=== PATIENT | male | born 1945 | race Caucasian/White ===

== ENCOUNTER 2021-07-03 12:07 | Outpatient (REF) | payer BC, SELFPAY ==
[2021-07-03 14:14] LABS: Alanine Aminotransferase 31 U/L (0-40); Anion Gap 11 (12-20); Aspartate Amino Transferase 24 U/L (5-37); Blood Urea Nitrogen 20 mg/dL (9-16); Calcium 9.7 mg/dL (8.4-10.2); Carbon Dioxide 32 mmol/L (22-29); Chloride 101 mmol/L (96-108); Cholesterol 179 mg/dL; Estimated Glomerular Filt Rate > 60; Glucose Fasting 82 mg/dL (60-99); HDL Cholesterol 57 mg/dL; LDL Cholesterol Calculated 106 mg/dl; Potassium 4.3 mmol/L (3.3-5.1); Sodium 140 mmol/L (135-145); Triglycerides 81 mg/dL
[2021-07-03 14:36] LABS: PSA,Total (Free>4and<10) 2.62 ng/mL (0.00-4.00); Vitamin D 25-OH Total 20.4 ng/mL (>30)
[2021-07-04 09:26] LABS: Lyme Blot 2.55 index
[2021-07-05 10:40] LABS: Lyme Abs Screen POSITIVE
[2021-07-12 13:27] LABS: 18 KD (IgG) Band REACTIVE; 23 KD (IgG) Band REACTIVE; 23 KD (IgM) Band NON-REACTIVE; 28 KD (IgG) Band NON-REACTIVE; 30 KD (IgG) Band NON-REACTIVE; 39 KD (IgM) Band NON-REACTIVE; 41 KD (IgM) Band NON-REACTIVE; 45 KD (IgG) Band NON-REACTIVE; 58 KD (IgG) Band NON-REACTIVE; 66 KD (IgG) Band NON-REACTIVE; 93 KD (IgG) Band NON-REACTIVE; Lyme IgG Blot Interp NEGATIVE (NEGATIVE); Lyme IgM Blot Interp NEGATIVE (NEGATIVE)
== END 2021-07-03 12:08 | disposition home or self-care (01) ==
LOC: HO.HMGCLDS 12:07
PROVIDERS: PCP Internal Medicine; Visit Provider Internal Medicine
DX: Z00.01 Encounter for general adult medical examination with abnormal findings (principal); Z12.5 Encounter for screening for malignant neoplasm of prostate; I10 Essential (primary) hypertension; Z91.89 Other specified personal risk factors, not elsewhere classified
CPT/HCPCS: 36415; 80048; 80061; 82306; 84153; 84450; 84460; 86617; 86618

== ENCOUNTER 2021-08-15 10:48 | Outpatient (REF) | payer BC, SELFPAY ==
[2021-08-16 09:52] LABS: Lyme Blot 2.53 index
[2021-08-19 13:53] LABS: Lyme Abs Screen POSITIVE
[2021-08-19 13:58] LABS: 18 KD (IgG) Band REACTIVE; 23 KD (IgG) Band REACTIVE; 23 KD (IgM) Band NON-REACTIVE; 28 KD (IgG) Band NON-REACTIVE; 30 KD (IgG) Band NON-REACTIVE; 39 KD (IgM) Band NON-REACTIVE; 41 KD (IgM) Band NON-REACTIVE; 45 KD (IgG) Band NON-REACTIVE; 58 KD (IgG) Band NON-REACTIVE; 66 KD (IgG) Band NON-REACTIVE; 93 KD (IgG) Band NON-REACTIVE; Lyme IgG Blot Interp NEGATIVE (NEGATIVE); Lyme IgM Blot Interp NEGATIVE (NEGATIVE)
== END 2021-08-15 10:49 | disposition home or self-care (01) ==
LOC: HO.HMGCLDS 10:48
PROVIDERS: PCP Internal Medicine; Visit Provider Internal Medicine
DX: Z86.19 Personal history of other infectious and parasitic diseases (principal)
CPT/HCPCS: 36415; 86617; 86618

== ENCOUNTER 2021-12-20 09:15 | Outpatient (REF) | payer BC, SELFPAY ==
[2021-12-20 11:16] LABS: MANUAL DIFF FLAG NO
[2021-12-20 11:17] LABS: Basophils Percent Auto 0.6 % (0-2); Eosinophils Absolute Auto 0.2 X10*3/uL (0.0-0.4); Eosinophils Percent Auto 4.7 % (0-4); Hematocrit 36.8 % (42.0-52.0); Hemoglobin 12.1 g/dl (14.0-18.0); Imm Gran Abs Auto 0.02 X10*3/uL (0.00-0.03); Imm Gran Pct Auto 0.4 % (0.0-0.4); Lymphocytes Absolute Auto 0.8 X10*3/uL (1.2-4.9); Lymphocytes Percent Auto 17.7 % (20-40); Mean Corpuscular HGB Conc 32.9 g/dl (31.0-36.0); Mean Corpuscular Hemoglobin 29.2 pg (27.0-33.0); Mean Corpuscular Volume 88.9 fL (80.0-98.0); Mean Platelet Volume 11.7 fL (9.4-12.4); Monocytes Absolute Auto 0.4 X10*3/uL (0.1-1.2); Monocytes Percent Auto 9.1 % (2-11); Neutrophils Absolute Auto 3.1 x10*3/uL (2.0-8.3); Neutrophils Percent Auto 67.5 % (45-73); Platelet Count 219 X10*3/uL (160-400); Red Blood Count 4.14 X10*6/uL (4.60-5.80); Red Cell Distribution Width 17.3 % (11.0-16.0); White Blood Count 4.6 X10*3/uL (4.8-10.8)
[2021-12-20 11:49] LABS: Alanine Aminotransferase 27 U/L (0-40); Anion Gap 13 (12-20); Aspartate Amino Transferase 22 U/L (5-37); Blood Urea Nitrogen 22 mg/dL (9-16); Carbon Dioxide 25 mmol/L (22-29); Chloride 105 mmol/L (96-108); Cholesterol 101 mg/dL; Estimated Glomerular Filt Rate > 60; Glucose Fasting 81 mg/dL (60-99); HDL Cholesterol 52 mg/dL; Iron 71 mcg/dL (45-160); LDL Cholesterol Calculated 42 mg/dl; Percent Iron Saturation 33 % (15-50); Potassium 3.8 mmol/L (3.3-5.1); Sodium 139 mmol/L (135-145); Total Iron Binding Capacity 217 mcg/dL (228-428); Triglycerides 36 mg/dL; Unsaturated Iron Binding 146 ug/dL; Vitamin D 25-OH Total 25.6 ng/mL (>30)
== END 2021-12-20 09:16 | disposition home or self-care (01) ==
LOC: HO.HMGCLDS 09:15
PROVIDERS: PCP Internal Medicine; Visit Provider Internal Medicine
DX: I25.2 Old myocardial infarction (principal); I25.10 Atherosclerotic heart disease of native coronary artery without angina pectoris; I10 Essential (primary) hypertension; D64.9 Anemia, unspecified; E55.9 Vitamin D deficiency, unspecified; Z95.1 Presence of aortocoronary bypass graft
CPT/HCPCS: 36415; 80048; 80061; 82306; 83540; 84450; 84460; 85025

== ENCOUNTER 2022-07-05 08:42 | Outpatient (REF) | payer BC, SELFPAY ==
[2022-07-05 11:12] LABS: MANUAL DIFF FLAG NO
[2022-07-05 11:17] LABS: Basophils Percent Auto 0.6 % (0-2); Eosinophils Absolute Auto 0.2 X10*3/uL (0.0-0.4); Eosinophils Percent Auto 3.8 % (0-4); Hematocrit 38.8 % (42.0-52.0); Hemoglobin 12.8 g/dl (14.0-18.0); Imm Gran Abs Auto 0.03 X10*3/uL (0.00-0.03); Imm Gran Pct Auto 0.6 % (0.0-0.4); Lymphocytes Absolute Auto 0.9 X10*3/uL (1.2-4.9); Lymphocytes Percent Auto 16.6 % (20-40); Mean Corpuscular Hemoglobin 29.8 pg (27.0-33.0); Mean Corpuscular Volume 90.2 fL (80.0-98.0); Mean Platelet Volume 11.2 fL (9.4-12.4); Monocytes Absolute Auto 0.5 X10*3/uL (0.1-1.2); Neutrophils Absolute Auto 3.7 x10*3/uL (2.0-8.3); Neutrophils Percent Auto 69.4 % (45-73); Platelet Count 220 X10*3/uL (160-400); Red Cell Distribution Width 14.1 % (11.0-16.0); White Blood Count 5.3 X10*3/uL (4.8-10.8)
[2022-07-05 13:21] LABS: Cholesterol 111 mg/dL; HDL Cholesterol 49 mg/dL; Iron 83 mcg/dL (45-160); LDL Cholesterol Calculated 51 mg/dl; Percent Iron Saturation 41 % (15-50); Total Iron Binding Capacity 203 mcg/dL (228-428); Triglycerides 57 mg/dL; Unsaturated Iron Binding 120 ug/dL
[2022-07-05 13:23] LABS: Vitamin D 25-OH Total 29.3 ng/mL (>30)
== END 2022-07-05 08:43 | disposition home or self-care (01) ==
LOC: HO.HMGCLDS 08:42
PROVIDERS: PCP Internal Medicine; Visit Provider Internal Medicine
DX: E55.9 Vitamin D deficiency, unspecified (principal); D64.9 Anemia, unspecified; I25.10 Atherosclerotic heart disease of native coronary artery without angina pectoris; I25.2 Old myocardial infarction; I10 Essential (primary) hypertension
CPT/HCPCS: 36415; 80061; 82306; 83540; 85025

== ENCOUNTER 2022-08-28 14:27 | Outpatient (REF) | payer BC, SELFPAY ==
[2022-08-30 13:53] LABS: Kappa Light Chain, Free Serum 311.9 mg/L (3.3-19.4); Kappa/Lambda Lt Ch Free Ratio 64.98 (0.26-1.65); Lambda Light Chain, Free Serum 4.8 mg/L (5.7-26.3)
== END 2022-08-28 14:28 | disposition home or self-care (01) ==
LOC: HO.LAB 14:27
PROVIDERS: PCP Internal Medicine; Visit Provider Internal Medicine
DX: D64.9 Anemia, unspecified (principal)
CPT/HCPCS: 36415; 83521

== ENCOUNTER 2022-08-30 11:23 | Outpatient (REF) | payer BC, SELFPAY | END 2022-08-30 11:24 | disposition home or self-care (01) | LOC: HO.LNP 11:23 | PROVIDERS: Visit Provider Internal Medicine | DX: D64.9 Anemia, unspecified (principal) | CPT/HCPCS: 83883; 86335 ==

== ENCOUNTER 2022-10-01 15:13 | Outpatient (REF) | payer BC, SELFPAY ==
--- NOTE | ~2022-10-01 | XR_ITS ---
EXAMINATION: XR SKELETAL SURVEY CLINICAL INFORMATION: Question lytic lesions. COMPARISON: None available. TECHNIQUE: 9 view bone survey. FINDINGS: CHEST: PA film of the chest demonstrates bilateral pleural effusions with no evidence of pulmonary edema. Heart normal size. Status post median sternotomy and CABG. No pneumothorax. No destructive bony lesions appreciated. LATERAL CERVICAL SPINE: No abnormal prevertebral soft tissue swelling is seen. No lytic destructive bony lesion is appreciated. Multilevel degenerative disc disease with marginal spurring is present. AP AND LATERAL THORACIC SPINE: No acute fracture of the thoracic spine is appreciated. Multilevel degenerative disc disease is seen with spurring including calcification of the anterior longitudinal ligament. Pedicles appear intact. No abnormal paraspinal line bulge is seen. No destructive lytic lesions appreciated. LUMBAR SPINE: There are 5 nonrib-bearing lumbar vertebra. No acute fracture, spondylolisthesis, or spondylolysis identified. Multilevel degenerative disc disease is seen most prominent L4 through S1 with bilateral facet arthropathy at these levels. Pedicles intact. No destructive lytic lesions appreciated. AP PELVIS: There is no evidence of acute fracture or diastasis of the pelvis. Sacroiliac joints appear unremarkable other than for some mild spurring inferiorly. No evidence of widening or fusion. Changes of enthesopathy are seen. There is osteitis pubis present. There is degenerative spurring about the hip joints bilaterally. No destructive lesions identified. LATERAL SKULL: On this single view the calvarium appears intact. No abnormal lytic or sclerotic lesion is identified. Visualized paranasal sinuses and mastoid air cells appear unremarkable. XR/XR bone survey IMPRESSION: No lytic lesions identified. Bilateral pleural effusions. Degenerative change of the spine as described.
== END 2022-10-01 15:14 | disposition home or self-care (01) ==
LOC: HO.XRAY 15:13
PROVIDERS: PCP Internal Medicine; Visit Provider Internal Medicine
DX: D47.2 Monoclonal gammopathy (principal)
CPT/HCPCS: 77075

== ENCOUNTER 2022-10-22 09:51 | Day surgery (SDC) | payer BC, SELFPAY ==
[2022-10-22] VITALS (7 sets, daily range): BP systolic 111–141; BP diastolic 72–90; PULSE 60–78; RESP 16–18; TEMP 36.3–36.7; O2SAT 89–98; BMI 28.0
--- NOTE | ~2022-10-22 | CT_ITS ---
PROCEDURE: CT-GUIDED BONE NARROW BIOPSY CLINICAL INFORMATION: IgA myeloma. COMPARISON: None available. TECHNIQUE: Following explaining CT-guided iliac crest bone marrow biopsy procedure, benefits and risks, a written consent was obtained. Patient was placed prone on CT table and preliminary CT imaging was obtained. Lead markers were placed overlying the left iliac crest followed by CT imaging. An optimal marker was selected and marked on the skin. The marked site was cleaned and draped in the usual sterile manner with 2% chlorhexidine solution. 1% lidocaine was injected at the puncture site. Through a small skin incision, a 16-gauge guide needle was advanced from the skin to the bony cortex. With a hand-held drill, the needle was drilled into the bone marrow. Two syringes each with EDTA and heparin was attached to the needle and blood was aspirated. Subsequently coaxially, a 17-gauge needle was advanced and a core biopsy was performed. Postprocedure stylet was reintroduced and the entire needle was drilled out. Complete hemostasis was achieved at puncture site. Patient tolerated the procedure extremely well. This CT examination was performed using dose optimization techniques as appropriate, variously including the following: *Automated exposure control. *Adjustment of mA and/or kV according to patient size (this includes techniques or standardized protocols for targeted exams where dose is matched to indication/reason for exam; i.e. extremities or head). *Use of iterative reconstruction technique. DLP: 216 mGy-cm FINDINGS: On CT imaging, there is no lytic or sclerotic process seen. The bowel gas pattern is nonspecific. No abnormal inguinal or pelvic lymph nodes. There is no free fluid. CT/CT biopsy bone marrow IMPRESSION: Successful CT-guided left iliac bone marrow biopsy and aspiration.
[2022-10-22 10:37] LABS: MANUAL DIFF FLAG NO
[2022-10-22 10:42] LABS: Basophils Percent Auto 0.8 % (0-2); Eosinophils Absolute Auto 0.2 X10*3/uL (0.0-0.4); Eosinophils Percent Auto 4.6 % (0-4); Hematocrit 37.6 % (42.0-52.0); Hemoglobin 12.5 g/dl (14.0-18.0); Imm Gran Abs Auto 0.01 X10*3/uL (0.00-0.03); Imm Gran Pct Auto 0.2 % (0.0-0.4); Lymphocytes Absolute Auto 0.8 X10*3/uL (1.2-4.9); Lymphocytes Percent Auto 16.7 % (20-40); Mean Corpuscular HGB Conc 33.2 g/dl (31.0-36.0); Mean Corpuscular Hemoglobin 29.9 pg (27.0-33.0); Mean Platelet Volume 10.3 fL (9.4-12.4); Monocytes Absolute Auto 0.4 X10*3/uL (0.1-1.2); Monocytes Percent Auto 8.5 % (2-11); Neutrophils Absolute Auto 3.4 x10*3/uL (2.0-8.3); Neutrophils Percent Auto 69.2 % (45-73); Platelet Count 225 X10*3/uL (160-400); Red Blood Count 4.18 X10*6/uL (4.60-5.80); Red Cell Distribution Width 14.6 % (11.0-16.0)
[2022-10-22 10:45] LABS: INTERNATIONAL NORM RATIO 1.1 (0.9-1.1)
[2022-10-22 10:47] LABS: Partial Thromboplastin Time 36.4 SEC (26.0-36.4)
[2022-10-22 13:16] LABS: Bone Marrow SEE SEPARATE REPORT
== END 2022-10-22 14:12 | disposition home or self-care (01) ==
PROVIDERS: Pathology Anatomic Pathology & Clinical Pathology; Radiology Diagnostic Radiology; PCP Internal Medicine; Visit Provider Internal Medicine
DX: D64.9 Anemia, unspecified (principal); D47.2 Monoclonal gammopathy; I10 Essential (primary) hypertension; I25.2 Old myocardial infarction; Z79.82 Long term (current) use of aspirin; Z79.899 Other long term (current) drug therapy
CPT/HCPCS: 36415; 38221; 38222; 85025; 85610; 85730; 88184; 88185; 88237; 88264; 88271; 88275; 88305; 88311; 88313; 88342; 88344; 88374; 99152; J1642; J2250; J3010

== ENCOUNTER 2022-11-26 09:16 | Outpatient (AMB) | payer BC, SELFPAY ==
--- NOTE | 2022-11-26 09:38 | A.OFFPC_ITS ---
<Statement entered by Pippa Mullins MD - 07/26/25 00:11> This note has been administratively?closed. Vital Signs 11/26/22 09:39 Height 5 ft 9 in Weight 184 lb BMI 27.2 BP 108/72 Blood Pressure Location Lt brachial Position Sitting Pulse 70 Pulse Source Pulse Oximeter Pulse Oximetry (%) 98 Oxygen Delivery Method Room Air Intake Visit Reasons: Fatigue-weight loss-lost voice Intake Note: Patient here because he has been experiencing some fatigue, numbness in tips of fingers and feet, balance issues and weight loss. Allergies No Known Allergies Allergy (Verified 06/14/25 07:44) Tobacco use date assessed: 08/10/22 [facility] Medical History Elevated PSA, less than 10 ng/ml Numbness and tingling in both hands Pain in left knee Tingling in extremities Hypotension Normocytic hypochromic anemia Right knee pain Vitamin D deficiency Anemia CAD (coronary artery disease) Hx of non-ST elevation myocardial infarction (NSTEMI) Degenerative joint disease of knee History of migraine Benign prostatic hyperplasia History of Lyme disease Essential hypertension Surgical History History of cataract surgery S/P CABG x 4 History of tonsillectomy History of hemorrhoidectomy History of laminectomy Family History Father CAD (coronary artery disease) Social History Housing: House Patient Tobacco Use Status: Never used Tobacco e-Cigarette/Vaping Use: Never Used service: Yes ([employer] 4 years) Current occupational status: retired Cognitive needs: No Hearing needs: No Vision needs: Yes Questionnaire Thrive Questionnaire Date Thrive assessed: 07/10/22 KACEY-7 AMB Questionnaire KACEY-7 Date KACEY - 7 assessed: 07/10/22 Source: Developed by Drs. Ernie Snowden, Yessica Murry, Jabier Erazo and colleagues, with an educational caryl from [employer]. Physical exam (Primary Care) Vital Signs: Last Vital Signs Pulse 70 11/26/22 09:39 BP 108/72 11/26/22 09:39 Pulse Ox 98 11/26/22 09:39 Oxygen Delivery Method Room Air 11/26/22 09:39 BMI result Body Mass Index 27.2 Tobacco/Smoking Status: Tobacco use Status Tobacco use date assessed 08/10/22 11/26/22 09:44 Patient Tobacco Use Status Never used Tobacco 11/26/22 09:44 e-Cigarette/Vaping Use Never Used 11/26/22 09:44 Thrive Assessment: Date of Thrive Assessment Date Thrive assessed 07/10/22 11/26/22 09:44 Coding Level of Care Code Admin Sign Off/No Billing Diagnoses Tingling in extremities R20.2 Fatigue R53.83
[2022-11-26 09:39] VITALS: BP 108/72; PULSE 70; O2SAT 98; BMI 27.2
== END 2022-11-26 10:43 | disposition home or self-care (01) ==
LOC: HO.HMGC 09:16
PROVIDERS: PCP Internal Medicine; Visit Provider Internal Medicine
DX: R20.2 Paresthesia of skin (principal); R53.83 Other fatigue
CPT/HCPCS: 99499

== ENCOUNTER 2023-01-24 10:46 | Outpatient (AMB) | payer BC, SELFPAY ==
--- NOTE | 2023-01-24 10:59 | A.OFFPC_ITS ---
Vital Signs 01/24/23 11:03 Height 5 ft 9 in Weight 182 lb BMI 26.9 BP 124/70 Blood Pressure Location Lt brachial Position Sitting Pulse 67 Pulse Source Pulse Oximeter Pulse Oximetry (%) 96 Oxygen Delivery Method Room Air Intake Visit Reasons: Annual PE/ Should have been done in Jul Intake Note: Pt is here today for his PE Allergies No Known Allergies Allergy (Verified 01/24/23 11:12) Medication List - Last Reconciled 01/24/23 by Pippa Mullins MD ascorbic acid (vitamin C) 1,000 mg PO DAILY aspirin (Adult Low Dose Aspirin) 81 mg PO DAILY atorvastatin 40 mg PO DAILY cholecalciferol (vitamin D3) 1,250 mcg PO QWEEK 3 months furosemide 40 mg PO BID mecobalamin (vitamin B12) 1,000 mcg PO DAILY potassium chloride ER 20 mEq PO DAILY Tobacco use date assessed: 01/24/23 Fall risk assessment: No Falls in past year Last assessed Fall Risk: 01/24/23 Dental Screening Dental Screen Date: 01/24/23 Did you have a dental visit in the last 12 months?: Yes Did you have a dental problem in the last 6 months where you did not have access to dental care?: No Was dental information given to patient?: Patient has dentist HPI Annual PE/ Should have been done in Jul HPI Details 77-year-old male with coronary artery disease status post CABG x4 December 2021, anemia, hypertension, benign prostatic hyperplasia, and degenerative joint disease status post cortisone and hyaluronic injection in his right knee earlier this year, here today for a physical exam. He has been feeling well, states felt better after he got cortisone injection. Denies any dizziness, no weakness, no chest pain, no shortness of breath, back to doing his regular activities at home. He is up-to-date with all his vaccinations, but does not want to get a COVID booster no does he get yearly flu shots, as he gets sick fro m the vaccine. Up-to-date with his screening colonoscopy done by Dr. Castro, with hyperplastic polyp removed in 2016, no further screening needed per patient. [facility] Medical History (Updated 01/24/23 @ 11:31 by Pippa Mullins MD) Anemia Benign prostatic hyperplasia CAD (coronary artery disease) Degenerative joint disease of knee Essential hypertension History of Lyme disease History of migraine Hx of non-ST elevation myocardial infarction (NSTEMI) Hypotension Normocytic hypochromic anemia Right knee pain Tingling in extremities Vitamin D deficiency Surgical History History of hemorrhoidectomy History of laminectomy History of tonsillectomy S/P CABG x 4 Family History Father CAD (coronary artery disease) Social History Housing: House Patient Tobacco Use Status: Never used Tobacco e-Cigarette/Vaping Use: Never Used service: Yes ([employer] 4 years) Current occupational status: retired Cognitive needs: No Hearing needs: No Vision needs: Yes Questionnaire PHQ-9 Over the last 2 weeks, how often have you been bothered by any of the following problems? 1. Little interest or pleasure in doing things: not at all 2. Feeling down, depressed, or hopeless: not at all 3. Trouble falling or staying asleep, or sleeping too much: not at all 4. Feeling tired or having little energy: not at all 5. Poor appetite or overeating: not at all 6. Feeling bad about yourself - or that you are a failure or have let yourself or your family down: not at all 7. Trouble concentrating on things, such as reading the newspaper or watching television: not at all 8. Moving or speaking so slowly that other people could have noticed. Or the opposite - being so fidgety or restless that you have been moving around a lot more than usual: not at all 9. Thoughts that you would be better off or of hurting yourself in some way: not at all Total score: 0 Depression Screening Interpretation: Negative 07089 - PHQ-9 Billing: Yes Source: Developed by Drs. Ernie Snowden, Yessica Murry, Jabier Erazo and colleagues, with an educational caryl from [employer]. Thrive Questionnaire Date Thrive assessed: 07/10/22 AUDIT C Alcohol Use Questionnaire (AUDIT-C) 1. How often do you have a drink containing alcohol?: Never Total Score: 0 KACEY-7 AMB Questionnaire KACEY-7 Date KACEY - 7 assessed: 07/10/22 Source: Developed by Drs. Ernie Snowden, Yessica Murry, Jabier Erazo and colleagues, with an educational caryl from [employer]. Review of Systems Const Denies body aches, Denies difficulty sleeping, Denies fever(s), Denies headache(s) and Denies weakness Eyes Details: Sees Dr. Perez for his regular eye exams, had cataract surgery in 2021 Denies change in vision ENT Reports Normal hearing present, Denies dizziness, Denies headache(s), Denies hoarseness, Denies sore throat and Denies throat swelling Card Denies chest pain, Denies lightheadedness, Denies palpitations and Denies dyspnea Resp Denies chest congestion, Denies pain on inspiration, Denies dyspnea and Denies wheezing GI Denies abdominal pain, Denies change in bowel habits and Denies heartburn Denies dysuria, Denies urinary frequency and Denies urinary urgency Musc Reports arthralgias (Knees, intermittent) and Reports stiffness Skin/Breast Denies lesions and Denies rash Neuro Reports Normal hearing present, Denies dizziness, Denies headache(s) and Denies weakness Psych Reports no additional complaints Endo Denies polydipsia, Denies polyuria and Denies palpitations Maciel/Lymph Reports easy bruising Aller/Immun Denies throat swelling and Denies wheezing Physical exam (Primary Care) Vital Signs: Last Vital Signs Pulse 67 01/24/23 11:03 BP 124/70 01/24/23 11:03 Pulse Ox 96 01/24/23 11:03 Oxygen Delivery Method Room Air 01/24/23 11:03 BMI result Body Mass Index 26.9 Tobacco/Smoking Status: Tobacco use Status Tobacco use date assessed 01/24/23 01/24/23 11:05 Patient Tobacco Use Status Never used Tobacco 01/24/23 11:00 e-Cigarette/Vaping Use Never Used 01/24/23 11:00 PHQ-9: PHQ-9 Score PHQ-9: Total score 0 01/24/23 11:33 Depression Screening Interpretation: Negative Thrive Assessment: Date of Thrive Assessment Date Thrive assessed 07/10/22 01/24/23 11:00 Const General: cooperative, comfortable and no acute distress Orientation/consciousness: patient oriented x3 HENMT Head: Yes normocephalic Eyes General: appearance normal, both eyes and all related structures Neck Neck: Yes supple Chest Chest palpation & inspection: normal inspection of the chest Resp Effort & Inspection: normal respiratory effort, no cough and no stridor Cardio Rhythm: regular rhythm Heart sounds: S1 normal heart sound present and S2 normal heart sound present GI Other: Normal bowel sounds, soft, nontender with no mass palpated General: Yes no CVA tenderness Back/Spine/Pelvis Back: no CVA tenderness and No back tenderness Skin General skin exam: no rashes or lesions noted and turgor normal Neuro General: patient oriented x3, gait normal, tone normal, moves all extremities, Normal light touch and pain sensation, no focal motor deficits and CN's II-XI intact bilaterally Cranial nerves: Yes Normal hearing present Extrem Right lower extremity: no edema Left lower extremity: no edema Psych Appearance: grossly normal and well kempt Mental Status: mental status grossly normal Affect: normal affect Attitude: cooperative Thought process: Normal thought process present Assessment and Plan Assessment & Plan (1) Degenerative joint disease of knee: Code(s): M17.10 - Unilateral primary osteoarthritis, unspecified knee Plan: Currently being followed by [facility] just recently had hyaluronic injections and cortisone injection in his right knee with good results (2) Benign prostatic hyperplasia: Code(s): N40.0 - Benign prostatic hyperplasia without lower urinary tract symptoms (3) Essential hypertension: Code(s): I10 - Essential (primary) hypertension Plan: Blood pressure at goal of less than 130/80. Currently not on any medication, managed by diet exercise Reinforced importance of following a low sodium diet, getting regular exercise, and lowering stress levels. (4) CAD (coronary artery disease): Code(s): I25.10 - Atherosclerotic heart disease of [place] coronary artery without angina pectoris Plan: Currently on aspirin, followed by , has an appointment already scheduled for 02/28/2023 for his follow-up. Taken off metoprolol due to hypotension currently on furosemide 40 mg twice a day only and potassium chloride ER 20 mg once daily (5) S/P CABG x 4: Comment: 09/21/[address] Kayden Kline Code(s): Z95.1 - Presence of aortocoronary bypass graft (6) Normocytic hypochromic anemia: Code(s): D50.9 - Iron deficiency anemia, unspecified Plan: Done by Hematology (7) Vitamin D deficiency: Code(s): E55.9 - Vitamin D deficiency, unspecified Plan: Continue with vitamin-D 3 supplements high-dose weekly for the next 3 months (8) Annual visit for general adult medical examination with abnormal findings: Code(s): Z00. - Encounter for general adult medical examination with abnormal findings Plan: Continue with regular dental visit every 6 months and regular eye exams, at least every 2 years. Take adequate calcium in diet and vitamin-D 3 at 2000 IU per cap once a day, in addition to weight-bearing exercises to help maintain good muscle tone and weight control. Instructed do self testicular exam check for any mass. Up-to-date with screening colonoscopy, up-to-date with Shingrix vaccination, Tdap, pneumonia vaccine but does not want to get a COVID booster or yearly flu shot . He had recent fasting labs done at [facility] 11/28/2022 which showed normal lipids, normal fasting glucose, normal vitamin-D B12 level, lytes and renal function, but still remains anemic. Review Flu Vaccine not done: patient reason Coding Level of Care Code Est Pt Prev Care >65y(80117) Diagnoses Degenerative joint disease of knee M17.10 Benign prostatic hyperplasia N40.0 Essential hypertension I10 CAD (coronary artery disease) I25.10 S/P CABG x 4 Z95.1 Normocytic hypochromic anemia D50.9 Vitamin D deficiency E55.9 Annual visit for general adult medical examination with abnormal findings Z
[2023-01-24 11:03] VITALS: BP 124/70; PULSE 67; O2SAT 96; BMI 26.9
== END 2023-01-24 14:07 | disposition home or self-care (01) ==
PROVIDERS: Visit Provider Internal Medicine
DX: Z00.01 Encounter for general adult medical examination with abnormal findings (principal); Z95.1 Presence of aortocoronary bypass graft; I10 Essential (primary) hypertension; E55.9 Vitamin D deficiency, unspecified; M17.10 Unilateral primary osteoarthritis, unspecified knee; N40.0 Benign prostatic hyperplasia without lower urinary tract symptoms; I25.10 Atherosclerotic heart disease of native coronary artery without angina pectoris; D50.9 Iron deficiency anemia, unspecified
CPT/HCPCS: 99397

== ENCOUNTER 2023-08-16 09:50 | Outpatient (AMB) | payer BC, SELFPAY ==
--- NOTE | 2023-08-16 09:52 | MHC.OFFVIS ---
Intake Vital Signs 08/16/23 09:57 Height 5 ft 9 in Weight 185 lb BMI 27.3 BP 132/72 Blood Pressure Location Lt brachial Position Sitting Pulse 78 Pulse Source Pulse Oximeter Pulse Oximetry (%) 99 Oxygen Delivery Method Room Air Intake Visit Reasons: Right medial knee pain Intake Note: Pain today 0/10 [employer] Required: No Accompanied by: Spouse Allergies No Known Allergies Allergy (Verified 08/16/23 09:57) HPI Knee Pain History of Present Illness Involved knee right Onset gradual Description of injury Arthritis Location of pain medial and posterior Pain scale (0-10) 0 Character stabbing and dull ache Timing of pain intermittent Exacerbated by direct pressure, weight bearing, kneeling, squatting, stairs, running, rotational activities, prolonged activity, walking up stairs and walking down stairs Relieved by Tylenol, ice, rest and NSAIDs Associated symptoms Reports swelling, grating and stiffness; Denies fever(s), erythema, warmth, popping, clicking, locking, catching, instability or giving way History of prior knee injury No HPI Comments History of Present Illness Details Patient is a pleasant 77 male presents today initial evaluation of right knee pain. Denies any recent trauma, injury or falls. Patient attributes knee right medial and posterior knee pain due to advanced arthritis and Garner's cyst. Pain has been presents for many years but worsening for the past 1.5 years. He was followed at [facility] and offered total knee replacement surgery which patient has declined. Patient reports cortisone and gel injections were effective, last injections in summer of 2022. He is interested in alternative treatments to postpone TKR procedure, increase his walking capacity and daily functioning. Denies any pain during rest, sitting or sleeping. Pain is described as intermittent aching and stabbing during walking, weight bearing, climbing or descending stairs, bending or cold weather changes. Patient has been managing his symptoms with heat/ice therapy, home stretching and quad exercises, Tylenol arthritis and Diclofenac sodium 75 mg twice daily, as well as taking vitamin supplements including Vitamin C, D and B12. Most recent GFR was noted at 52, patient was counseled on long-term taking NSAIDs, its effects and complications. Denies any fever, weakness, knee locking or giving away, foot drop, bladder or bowel dysfunction or saddle anesthesia. [facility] Medical History Pain in left knee Tingling in extremities Hypotension Normocytic hypochromic anemia Right knee pain Vitamin D deficiency Anemia CAD (coronary artery disease) Hx of non-ST elevation myocardial infarction (NSTEMI) Degenerative joint disease of knee History of migraine Benign prostatic hyperplasia History of Lyme disease Essential hypertension Surgical History S/P CABG x 4 History of tonsillectomy History of hemorrhoidectomy History of laminectomy Family History Father CAD (coronary artery disease) Social History Housing: House Patient Tobacco Use Status: Never used Tobacco e-Cigarette/Vaping Use: Never Used service: Yes ([employer] 4 years) Current occupational status: retired Cognitive needs: No Hearing needs: No Vision needs: Yes Review of Systems Const All systems reviewed & are unremarkable except as noted in HPI and below Denies fever(s) Musc Reports stiffness Skin/Breast Denies erythema Physical Exam Vital Signs: Last Vital Signs Pulse 78 08/16/23 09:57 BP 132/72 08/16/23 09:57 Pulse Ox 99 08/16/23 09:57 Oxygen Delivery Method Room Air 08/16/23 09:57 BMI result Body Mass Index 27.3 General: Appears afebrile. Alert and oriented. Mood and affect appropriate. Follows and participates in conversation appropriately. Respiratory effort is unlabored. No cough. Able to transition from sit to stand unassisted. Ambulates with bilaterally normal heel strike and toe off. Extrem General: Yes capillary refill normal, Yes no clubbing, cyanosis or edema and Yes no calf tenderness Right lower extremity: knee (Limited ROM due to pain.) Details: normal to inspection, tenderness Location: of the popliteal fossa and of the medial joint line, swelling Location: of the popliteal fossa and crepitus (with flexion); no ecchymosis and no unusual warmth Results Reviewed Results Reviewed: No imaging reports are available for review today. 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 Schedule Right knee Durolane injection and aspiration of Garner's cyst with local and US guidance. Followed by Right knee PRP injection in 1 week with local and US guidance for chronic right knee pain related to OA. We also discussed genicular RFA and [employer] PNS trial. Informational pamphlets provided. Expectations, risks and benefits were reviewed. Patient is aware he will be contacted to schedule this procedure. Most recent GFR was noted at 52, patient was counseled on long-term taking NSAIDs, its effects and complications. Encouraged patient to titrate off diclofenac sodium or taking it rarely. All questions and concerns have been answered and patient agreed with the plan. Follow up after injections and sooner as needed. Coding Level of Care Code New Pt Level 4 (31522) Diagnoses Right medial knee pain M25.561 Osteoarthritis of right knee M17.11 Bakers cyst M71.20
[2023-08-16 09:57] VITALS: BP 132/72; PULSE 78; O2SAT 99; BMI 27.3
== END 2023-08-16 10:28 | disposition home or self-care (01) ==
PROVIDERS: PCP Internal Medicine; Visit Provider Nurse Practitioner Family
DX: M25.561 Pain in right knee (principal); M17.11 Unilateral primary osteoarthritis, right knee; M71.20 Synovial cyst of popliteal space [Baker], unspecified knee
CPT/HCPCS: 99204

== ENCOUNTER → 2023-08-16 09:50 | Outpatient (BNVA) | payer BC, SELFPAY | PROVIDERS: PCP Internal Medicine; Visit Provider Nurse Practitioner Family ==

== ENCOUNTER 2023-10-24 06:11 | Outpatient (REF) | payer BC, SELFPAY | END 2023-10-24 06:12 | disposition home or self-care (01) | LOC: CF 06:11 | PROVIDERS: Visit Provider Internal Medicine | DX: M71.20 Synovial cyst of popliteal space [Baker], unspecified knee (principal); M17.11 Unilateral primary osteoarthritis, right knee | CPT/HCPCS: 20611; 20612; Q9967 ==

== ENCOUNTER 2023-10-24 08:33 | Outpatient (AMB) | payer BC, SELFPAY ==
[2023-10-24 08:33] VITALS: BP 130/76; PULSE 76; RESP 18; O2SAT 100; BMI 27.3
--- NOTE | 2023-10-24 08:33 | A.OFFVIS_ITS ---
Vital Signs 10/24/23 08:33 10/24/23 10:17 Height 5 ft 9 in Weight 185 lb BMI 27.3 BP 130/76 128/72 Blood Pressure Location Rt brachial Lt brachial Position Sitting Sitting Respiration 18 18 Pulse 76 72 Pulse Source Pulse Oximeter Pulse Oximeter Pulse Oximetry (%) 100 97 Oxygen Delivery Method Room Air Room Air Comment Pre-Op Post-Op Intake Visit Reasons: Right knee Gel-One inj/aspiration of Garner's cyst Allergies No Known Allergies Allergy (Verified 08/16/23 09:57) HPI HPI Right knee Gel-One inj/aspiration of Garner's cyst: Details: Patient presents for scheduled procedure. Denies any recent cough, cold, infection, fever or other significant changes in medical history since last office visit. [facility] Medical History Pain in left knee Tingling in extremities Hypotension Normocytic hypochromic anemia Right knee pain Vitamin D deficiency Anemia CAD (coronary artery disease) Hx of non-ST elevation myocardial infarction (NSTEMI) Degenerative joint disease of knee History of migraine Benign prostatic hyperplasia History of Lyme disease Essential hypertension Surgical History S/P CABG x 4 History of tonsillectomy History of hemorrhoidectomy History of laminectomy Family History Father CAD (coronary artery disease) Social History Housing: House Patient Tobacco Use Status: Never used Tobacco e-Cigarette/Vaping Use: Never Used service: Yes ([employer] 4 years) Current occupational status: retired Cognitive needs: No Hearing needs: No Vision needs: Yes Physical Exam Vital Signs: Last Vital Signs Pulse 76 10/24/23 08:33 Resp 18 10/24/23 08:33 BP 130/76 10/24/23 08:33 Pulse Ox 100 10/24/23 08:33 Oxygen Delivery Method Room Air 10/24/23 08:33 BMI result Body Mass Index 27.3 Office Procedures Joint Injection/Drain Joint Injection/Drain Details: Garner's cyst aspiration, Right Knee The patient was placed in the supine position. Ultrasound exam revealed fluid collection in the suprapatellar bursa as well as a Garner's cyst posteriorly. A 21 gauge 100 mm needle was advanced to the suprapatellar bursa and 20 mL of clear synovial fluid was aspirated. A 22 gauge 3.5 in needle was then advanced into the posterior Garner's cyst under ultrasound guidance and 30 mL of clear synovial fluid was aspirated. Total fluid aspirate was 50 mL. The fluid collections were confirmed to collapse on ultrasound visualization. Following intra-articular confirmation through the suprapatellar bursa, the prepackaged Gel-One syringe containing 3 mL hyaluronic acid was retrieved and administered to the joint. 2 mL was administered in the suprapatellar joint space. The remaining 1 mL was administered through a 25 gauge needle placed through the anteromedial approach using landmark technique. The patient tolerated the procedure well. Gel-One Lot # [id number] Exp Date 01/22/2026 Primary Site: right knee Prep: site was prepped using sterile technique and injection warnings given Coding 48111 - Large joint Additional procedure code (CPT) needed Assessment & Plan Assessment & Plan (1) Bakers cyst: Code(s): M71.20 - Synovial cyst of popliteal space [Garner], unspecified knee Category: Medical (2) Osteoarthritis of right knee: Code(s): M17.11 - Unilateral primary osteoarthritis, right knee Category: Medical Plan Patient is status post right knee suprapatellar bursa and Garner's cyst aspiration followed by hyaluronic acid injection.. Patient tolerated procedure well and was discharged home in stable condition with discharge instructions. All questions were answered. We will follow-up via telephone or in clinic to assess response to therapy. A follow-up appointment was made during today's visit. Orders: Orders US guide needle placement Today M17.11 - Unilateral primary osteoarthritis, right knee, M71.20 - Synovial cyst of popliteal space [Garner], unspecified knee Coding Level of Care Code Procedure Only Diagnoses Bakers cyst M71.20 Osteoarthritis of right knee M17.11 CPT Codes Coding - 66467 Large joint: 52745 - Large joint ([id number])
[2023-10-24 10:17] VITALS: BP 128/72; PULSE 72; RESP 18; O2SAT 97
== END 2023-10-24 10:08 | disposition home or self-care (01) ==
LOC: HO.PMCPRC 08:33
PROVIDERS: PCP Internal Medicine; Visit Provider Internal Medicine
DX: M17.11 Unilateral primary osteoarthritis, right knee (principal); M71.20 Synovial cyst of popliteal space [Baker], unspecified knee
CPT/HCPCS: 20611; 20612; 76942

== ENCOUNTER 2023-10-31 06:19 | Outpatient (REF) | payer BC, SELFPAY | END 2023-10-31 06:20 | disposition home or self-care (01) | LOC: CF 06:19 | PROVIDERS: Visit Provider Internal Medicine | DX: Z13.89 Encounter for screening for other disorder (principal) ==

== ENCOUNTER 2023-10-31 10:58 | Outpatient (AMB) | payer SELFPAY ==
--- NOTE | 2023-10-31 11:08 | A.OFFVIS_ITS ---
Vital Signs 10/31/23 12:16 10/31/23 12:16 Height 5 ft 9 in Weight 185 lb BMI 27.3 BP 126/80 132/80 Blood Pressure Location Lt brachial Lt brachial Position Sitting Sitting Respiration 18 20 Pulse 76 76 Pulse Source Pulse Oximeter Pulse Oximeter Pulse Oximetry (%) 98 98 Oxygen Delivery Method Room Air Room Air Comment Pre-Op Post-Op Intake Visit Reasons: PRP right knee Allergies No Known Allergies Allergy (Verified 08/16/23 09:57) HPI HPI PRP right knee: Details: Patient presents for scheduled procedure. Denies any recent cough, cold, infection, fever or other significant changes in medical history since last office visit. PFSH Medical History Pain in left knee Tingling in extremities Hypotension Normocytic hypochromic anemia Right knee pain Vitamin D deficiency Anemia CAD (coronary artery disease) Hx of non-ST elevation myocardial infarction (NSTEMI) Degenerative joint disease of knee History of migraine Benign prostatic hyperplasia History of Lyme disease Essential hypertension Surgical History S/P CABG x 4 History of tonsillectomy History of hemorrhoidectomy History of laminectomy Family History Father CAD (coronary artery disease) Social History Housing: House Patient Tobacco Use Status: Never used Tobacco e-Cigarette/Vaping Use: Never Used service: Yes ([employer] 4 years) Current occupational status: retired Cognitive needs: No Hearing needs: No Vision needs: Yes Physical Exam Vital Signs: Last Vital Signs Pulse 76 10/31/23 12:16 Resp 20 10/31/23 12:16 BP 132/80 10/31/23 12:16 Pulse Ox 98 10/31/23 12:16 Oxygen Delivery Method Room Air 10/31/23 12:16 BMI result Body Mass Index 27.3 Office Procedures Platelet Rich Plasma Injection PRP Joint Injection After informed written consent was obtained, pre-procedure oxygen saturation, heart rate, and blood pressure were recorded. An 18 gauge butterfly needle was used to obtain 51 mL of whole blood from the right antecubital fossa and mixed with 9 mL anticoagulant citrate dextrose solution. The 60 mL mixture was counter balanced to within 1 g and spun at 3500 rpm for 10 minutes. Platelet poor plasma was then drawn using a bench top press model and discarded. 6 mL of slightly leukocyte rich PRP was isolated in a 10 cc syringe and injected into the joint. EBL: 45 mL Primary Site: right knee (Knee joint visualized using ultrasound guidance and marked) Prep: site was prepped using sterile technique Approach Used: anteromedial Procedure: The patient tolerated the procedure well XCELL Platelet Plasma - [id number] 60 mL All charges added?: Procedure code (CPT) selection complete Assessment & Plan Assessment & Plan (1) Osteoarthritis of right knee: Code(s): M17.11 - Unilateral primary osteoarthritis, right knee Category: Medical Plan: Patient is status post PRP injection to the right knee joint. Patient tolerated procedure well and was discharged home in stable condition with discharge instructions. All questions were answered. We will follow-up via telephone or in clinic to assess response to therapy. A follow-up appointment was made during today's visit. Orders: Orders US guide needle placement Today M17.11 - Unilateral primary osteoarthritis, right knee AMB Platelet Rich Plasma (PRP) Injection Today M17.11 - Unilateral primary osteoarthritis, right knee Coding Level of Care Code Procedure Only Diagnoses Osteoarthritis of right knee M17.11 CPT Codes XCELL Kit 60mL ([id number])
[2023-10-31 12:16] VITALS: BP 126/80; BP 132/80; PULSE 76; RESP 18; RESP 20; O2SAT 98; BMI 27.3
== END 2023-10-31 12:09 | disposition home or self-care (01) ==
LOC: HO.PMCPRC 10:58
PROVIDERS: PCP Internal Medicine; Visit Provider Internal Medicine
DX: M17.11 Unilateral primary osteoarthritis, right knee (principal)
CPT/HCPCS: 0232T

== ENCOUNTER 2023-11-28 10:40 | Outpatient (AMB) | payer BC, SELFPAY ==
--- NOTE | 2023-11-28 10:42 | A.OFFVIS_ITS ---
Vital Signs 11/28/23 10:46 Height 5 ft 9 in Weight 187 lb BMI 27.6 BP 140/74 H Blood Pressure Location Lt brachial Position Sitting Pulse 71 Pulse Source Pulse Oximeter Pulse Oximetry (%) 98 Oxygen Delivery Method Room Air Intake Visit Reasons: s/p PRP Intake Note: Pain today .10/31 All Source Intelligence Required: No Accompanied by: Spouse Allergies No Known Allergies Allergy (Verified 11/28/23 10:46) HPI Comments Details: Patient presents today to assess response to Right knee Gel-One injection with Garner's cyst aspiration on 10/24/23 and Right knee PRP injection on 10/31/[address] Sharp. Patient reports over 90% ongoing pain relief in the projection of anterior knee pain since procedure with significant improvement in his daily functioning, mobility and sleep. He reports fullness sensation reoccurrence in his right posterior knee but not in suprapatellar area. He has been taking Tylenol Arthritis and Aleve (rarely) for breakthrough pain. Patient reports no significant right knee pain with bending and kneeling while recently working on his [employer] system. Patient is content with outcome of both injections so far and will continue to monitor the longer term effects of PRP as full improvement and significant benefits can take more than 12 weeks to show results. He rates his pain at 0.5/10. Denies any recent cough, cold, infection, fever, any significant changes in her medical history, medications or recent hospitalizations. Past Procedures: 10/31/23: Right knee PRP injection- >90% ongoing pain relief 10/24/23: Right knee Gel-One injection with Garner's cyst aspiration- 50% pain relief PRIOR: Patient is a pleasant 77 male presents today initial evaluation of right knee pain. Denies any recent trauma, injury or falls. Patient attributes knee right medial and posterior knee pain due to advanced arthritis and Garner's cyst. Pain has been presents for many years but worsening for the past 1.5 years. He was followed at [facility] and offered total knee replacement surgery which patient has declined. Patient reports cortisone and gel injections were effective, last injections in summer of 2022. He is interested in alternative treatments to postpone TKR procedure, increase his walking capacity and daily functioning. Denies any pain during rest, sitting or sleeping. Pain is described as intermittent aching and stabbing during walking, weight bearing, climbing or descending stairs, bending or cold weather changes. Patient has been managing his symptoms with heat/ice therapy, home stretching and quad exercises, Tylenol arthritis and Diclofenac sodium 75 mg twice daily, as well as taking vitamin supplements including Vitamin C, D and B12. Most recent GFR was noted at 52, patient was counseled on long-term taking NSAIDs, its effects and complications. Denies any fever, weakness, knee locking or giving away, foot drop, bladder or bowel dysfunction or saddle anesthesia. [facility] Medical History Pain in left knee Tingling in extremities Hypotension Normocytic hypochromic anemia Right knee pain Vitamin D deficiency Anemia CAD (coronary artery disease) Hx of non-ST elevation myocardial infarction (NSTEMI) Degenerative joint disease of knee History of migraine Benign prostatic hyperplasia History of Lyme disease Essential hypertension Surgical History S/P CABG x 4 History of tonsillectomy History of hemorrhoidectomy History of laminectomy Family History Father CAD (coronary artery disease) Social History Housing: House Patient Tobacco Use Status: Never used Tobacco e-Cigarette/Vaping Use: Never Used service: Yes ([employer] 4 years) Current occupational status: retired Cognitive needs: No Hearing needs: No Vision needs: Yes Review of Systems Const All systems reviewed & are unremarkable except as noted in HPI and below Physical Exam Vital Signs: Last Vital Signs Pulse 71 11/28/23 10:46 BP 140/74 H 11/28/23 10:46 Pulse Ox 98 11/28/23 10:46 Oxygen Delivery Method Room Air 11/28/23 10:46 BMI result Body Mass Index 27.6 General: Appears afebrile. Alert and oriented. Mood and affect appropriate. Follows and participates in conversation appropriately. Respiratory effort is unlabored. No cough. Able to transition from sit to stand unassisted. Ambulates with bilaterally normal heel strike and toe off. Extrem General: Yes capillary refill normal, Yes no clubbing, cyanosis or edema and Yes no calf tenderness Right lower extremity: knee (ROM 5-115) Details: normal to inspection, tenderness Location: of the medial joint line, swelling Location: of the popliteal fossa (mild) and crepitus (with flexion); no ecchymosis and no unusual warmth Results Reviewed Results Reviewed: No imaging reports are available for review today. Assessment & Plan Assessment & Plan (1) Osteoarthritis of right knee: Code(s): M17.11 - Unilateral primary osteoarthritis, right knee Category: Medical (2) Bakers cyst: Code(s): M71.20 - Synovial cyst of popliteal space [Garner], unspecified knee Category: Medical (3) Pain in left knee: Code(s): M25.562 - Pain in left knee Category: Medical Plan Patient is one month status post Gel-One with Garner's cyst aspiration and PRP injection to the right knee joint. He reports over 90% pain relief so far with improved functioning with ADLs, mobility and sleep. Patient will continue to monitor longer term effects of PRP as full improvement and significant benefits can take more than 12 weeks to show results. Patient denies any side or adverse effects from both injections. All questions and concerns have been answered and patient agreed with the plan. Follow up as needed. Coding Level of Care Code Est Pt Level 3 (86819) Diagnoses Osteoarthritis of right knee M17.11 Bakers cyst M71.20 Pain in left knee M25.562
[2023-11-28 10:46] VITALS: BP 140/74; PULSE 71; O2SAT 98; BMI 27.6
== END 2023-11-28 11:31 | disposition home or self-care (01) ==
PROVIDERS: PCP Internal Medicine; Visit Provider Nurse Practitioner Family
DX: M96.1 Postlaminectomy syndrome, not elsewhere classified (principal); Z96.89 Presence of other specified functional implants; M54.16 Radiculopathy, lumbar region; M51.36 Other intervertebral disc degeneration, lumbar region; M54.50 Low back pain, unspecified; G89.29 Other chronic pain; Z98.1 Arthrodesis status
CPT/HCPCS: 99213

== ENCOUNTER → 2023-11-28 10:40 | Outpatient (BNVA) | payer BC, SELFPAY | PROVIDERS: PCP Internal Medicine; Visit Provider Nurse Practitioner Family ==

== ENCOUNTER 2023-12-27 09:21 | Outpatient (AMB) | payer BC, SELFPAY ==
--- NOTE | 2023-12-27 09:25 | A.OFFVIS_ITS ---
Vital Signs 12/27/23 09:26 Height 5 ft 9 in Weight 187 lb BMI 27.6 BP 142/80 H Blood Pressure Location Lt brachial Position Sitting Respiration 14 Pulse 83 Pulse Source Pulse Oximeter Pulse Oximetry (%) 97 Oxygen Delivery Method Room Air Intake Visit Reasons: Drain Garner's Cyst Allergies No Known Allergies Allergy (Verified 12/27/23 09:27) Medication List - Last Reconciled 12/27/23 by Renetta Nogueira LPN ascorbic acid (vitamin C) 1,000 mg PO DAILY aspirin (Adult Low Dose Aspirin) 81 mg PO DAILY atorvastatin 40 mg PO DAILY cholecalciferol (vitamin D3) 1,250 mcg PO QWEEK 3 months diclofenac sodium 75 mg PO BID furosemide 40 mg PO BID furosemide 40 mg PO BID mecobalamin (vitamin B12) 1,000 mcg PO DAILY potassium chloride ER 20 mEq PO DAILY HPI HPI Drain Garner's Cyst: Details: 78-year-old male who presents today to the office for 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 The patient reports moderate relief following the last aspiration that was done in combination with PRP injection. Denies any recent cough, cold, infection, fever or other significant changes in medical history since last office visit. Past procedures 10/31/23: PRP Joint Injection: Moderate relief. 10/24/23: Garner's cyst aspiration, Right Knee: 50 mL removed [facility] Medical History Pain in left knee Tingling in extremities Hypotension Normocytic hypochromic anemia Right knee pain Vitamin D deficiency Anemia CAD (coronary artery disease) Hx of non-ST elevation myocardial infarction (NSTEMI) Degenerative joint disease of knee History of migraine Benign prostatic hyperplasia History of Lyme disease Essential hypertension Surgical History S/P CABG x 4 History of tonsillectomy History of hemorrhoidectomy History of laminectomy Family History Father CAD (coronary artery disease) Social History Housing: House Patient Tobacco Use Status: Never used Tobacco e-Cigarette/Vaping Use: Never Used service: Yes ([employer] 4 years) Current occupational status: retired Cognitive needs: No Hearing needs: No Vision needs: Yes Review of Systems Const All systems reviewed & are unremarkable except as noted in HPI and below Physical Exam Vital Signs: Last Vital Signs Pulse 83 12/27/23 09:26 Resp 14 12/27/23 09:26 BP 142/80 H 12/27/23 09:26 Pulse Ox 97 12/27/23 09:26 Oxygen Delivery Method Room Air 12/27/23 09:26 BMI result Body Mass Index 27.6 General: Appears afebrile. Alert and oriented. Mood and affect appropriate. Follows and participates in conversation appropriately. Respiratory effort is unlabored. Able to transition from sit to stand unassisted. Ambulates with bilaterally normal heel strike and toe off. Office Procedures Joint Injection/Drain Joint Injection/Drain Details: Right knee Garner?s cyst aspiration, US guided. The patient was placed in the prone position. Ultrasound exam revealed Garenr's cyst posteriorly. ChloraPrep was used for sterile preparation. A 25 gauge needle was used to inject lidocaine 1% to anesthetize the needle entry site. An 18- gauge needle was advanced to the posterior Garner's cyst under ultrasound guidance and 38 mL of clear synovial fluid was aspirated. After that 5ml of 25% dextrose was injected within the cyst wall. The fluid collections were confirmed to collapse on ultrasound visualization. Coding Details: An ultrasound image of the injection was taken and stored in the permanent record. 71831 - Large joint Procedure code (CPT) selection complete Results Reviewed Results Reviewed: No imaging is available for review. Assessment & Plan Assessment & Plan (1) Bakers cyst: Code(s): M71.20 - Synovial cyst of popliteal space [Garner], unspecified knee Category: Medical (2) Osteoarthritis of right knee: Code(s): M17.11 - Unilateral primary osteoarthritis, right knee Category: Medical Plan Patient is status post right knee Garner?s cyst aspiration, US guided. I injected 25% dextrose in attempt to obliterate the cyst space to minimize the risk of reoccurrence, since he seems to reaccumulate fairly quick in response to drainage. Patient tolerated procedure well and was discharged home in stable condition with discharge instructions.? All questions were answered. Scribed for Dr. Sharp by Amish Rae, pesticide use medical coordinator, on 12/27/2023. I, Dr. Aron, have personally reviewed and agree with the information entered by the scribe. Coding Level of Care Code Procedure Only Diagnoses Bakers cyst M71.20 Osteoarthritis of right knee M17.11 CPT Codes Coding - 45331 Large joint: 86179 - Large joint ([id number])
[2023-12-27 09:26] VITALS: BP 142/80; PULSE 83; RESP 14; O2SAT 97; BMI 27.6
== END 2023-12-27 10:29 | disposition home or self-care (01) ==
PROVIDERS: PCP Internal Medicine; Visit Provider Internal Medicine
DX: M17.11 Unilateral primary osteoarthritis, right knee (principal); M71.21 Synovial cyst of popliteal space [Baker], right knee
CPT/HCPCS: 20611

== ENCOUNTER → 2023-12-27 09:21 | Outpatient (BNVA) | payer BC, SELFPAY | PROVIDERS: PCP Internal Medicine; Visit Provider Internal Medicine | DX: M71.21 Synovial cyst of popliteal space [Baker], right knee (principal); M17.11 Unilateral primary osteoarthritis, right knee | CPT/HCPCS: 20611 ==

== ENCOUNTER 2024-01-27 13:00 | Outpatient (AMB) | payer BC, SELFPAY ==
[2024-01-27 13:22] VITALS: BP 118/68; PULSE 61; O2SAT 99; BMI 27.9
--- NOTE | 2024-01-27 13:22 | A.OFFPC_ITS ---
Vital Signs 01/27/24 13:22 Height 5 ft 9 in Weight 189 lb BMI 27.9 BP 118/68 Blood Pressure Location Rt brachial Position Sitting Pulse 61 Pulse Source Pulse Oximeter Pulse Oximetry (%) 99 Oxygen Delivery Method Room Air Intake Visit Reasons: PE Intake Note: Pt is here today for his PE Last colonoscopy 11/21/16 Allergies No Known Allergies Allergy (Verified 01/31/24 23:33) Medication List - Last Reconciled 01/27/24 by Pippa Mullins MD ascorbic acid (vitamin C) 1,000 mg PO DAILY aspirin (Adult Low Dose Aspirin) 81 mg PO DAILY atorvastatin 40 mg PO DAILY ferrous sulfate (FeroSul) 325 mg PO DAILY furosemide 40 mg PO BID mecobalamin (vitamin B12) 1,000 mcg PO DAILY potassium chloride ER 20 mEq PO DAILY Tobacco use date assessed: 01/27/24 Fall risk assessment: No Falls in past year Dental Screening Dental Screen Date: 01/27/24 Did you have a dental visit in the last 12 months?: Yes Did you have a dental problem in the last 6 months where you did not have access to dental care?: Yes Was dental information given to patient?: Patient has dentist HPI PE HPI Details 78 year-old male with coronary artery di sease status post CABG x4 December 2021, anemia, hypertension, benign prostatic hyperplasia, history of Lyme disease and degenerative joint disease , here today for physical exam. He has been feeling well, with no new complaints at present time. Last colonoscopy was done by Dr. Castro in 2017, hyperplastic polyp removed, with no further colonoscopies indicated per GI.. [facility] Medical History (Updated 01/27/24 @ 14:14 by Pippa Mullins MD) Pain in left knee Tingling in extremities Hypotension Normocytic hypochromic anemia Right knee pain Vitamin D deficiency Anemia CAD (coronary artery disease) Hx of non-ST elevation myocardial infarction (NSTEMI) Degenerative joint disease of knee History of migraine Benign prostatic hyperplasia History of Lyme disease Essential hypertension Surgical History (Updated 01/27/24 @ 14:15 by Pippa Mullins MD) History of cataract surgery S/P CABG x 4 History of tonsillectomy History of hemorrhoidectomy History of laminectomy Family History Father CAD (coronary artery disease) Social History Housing: House Patient Tobacco Use Status: Never used Tobacco e-Cigarette/Vaping Use: Never Used service: Yes ([employer] 4 years) Current occupational status: retired Cognitive needs: No Hearing needs: No Vision needs: Yes Questionnaire PHQ-9 Over the last 2 weeks, how often have you been bothered by any of the following problems? 1. Little interest or pleasure in doing things: not at all 2. Feeling down, depressed, or hopeless: not at all 3. Trouble falling or staying asleep, or sleeping too much: not at all 4. Feeling tired or having little energy: not at all 5. Poor appetite or overeating: not at all 6. Feeling bad about yourself - or that you are a failure or have let yourself or your family down: not at all 7. Trouble concentrating on things, such as reading the newspaper or watching television: not at all 8. Moving or speaking so slowly that other people could have noticed. Or the opposite - being so fidgety or restless that you have been moving around a lot more than usual: not at all 9. Thoughts that you would be better off or of hurting yourself in some way: not at all Total score: 0 Depression Screening Interpretation: Negative Depression Screening Done: Yes 49495 - PHQ-9 Billing: Yes Source: Developed by Drs. Ernie Snowden, Yessica Murry, Jabier Erazo and colleagues, with an educational caryl from [employer]. Thrive Questionnaire Date Thrive assessed: 01/27/24 I am a: Patient What is your living situation today?: I choose not to answer this question Within the past 12 months, did the food you bought not last and you didn't have the money to get more?: I choose not to answer this question Within the past 12 months, did you worry whether your food would run out before you got money to buy more?: Never true Do you have trouble paying for medicines?: No Do you have trouble getting transportation to medical appointments?: No Do you have trouble paying your heating and electricity bill?: No Do you have trouble taking care of your child, family member or friend?: No Do you have trouble with day-to-day activities such as bathing, preparing meals, shopping, managing finances, etc.?: I choose not to answer this question Are you currently unemployed and looking for a job?: I choose not to answer this question Are you interested in more education?: I choose not to answer this question Please select the resources that you would like help with: Housing/Assisted Currently or been in a relationship where the following occur: I choose not to answer THRIVE Score: 0 AUDIT C Alcohol Use Questionnaire (AUDIT-C) 1. How often do you have a drink containing alcohol?: Monthly or less Total Score: 1 KACEY-7 AMB Questionnaire KACEY-7 Date KACEY - 7 assessed: 01/27/24 Source: Developed by Drs. Ernie Snowden, Yessica Murry, Jabier Erazo and colleagues, with an educational caryl from [employer]. KACEY-7 Assessment Billing KACEY-7 Assessment Tool: pt declined-do not bill Review of Systems Const Denies body aches, Denies difficulty sleeping, Denies fever(s), Denies headache(s) and Denies weakness Eyes Details: Up-to-date, sees eye doctor in [place], where he had cataract surgery bilateral Denies change in vision ENT Reports Normal hearing present, Denies dizziness, Denies headache(s), Reports hearing loss (Wears hearing aid), Denies hoarseness, Denies sore throat and Denies throat swelling Card Denies chest pain, Denies lightheadedness, Denies palpitations and Denies dyspnea Resp Denies chest congestion, Denies pain on inspiration, Denies dyspnea and Denies wheezing GI Denies abdominal pain, Denies change in bowel habits and Denies heartburn Denies dysuria, Denies urinary frequency and Denies urinary urgency Musc Reports arthralgias (Knees, intermittent) and Reports stiffness Skin/Breast Denies lesions and Denies rash Neuro Reports Normal hearing present, Denies dizziness, Denies headache(s) and Denies weakness Psych Reports no additional complaints Endo Denies polydipsia, Denies polyuria and Denies palpitations Maciel/Lymph Reports easy bruising Aller/Immun Denies throat swelling and Denies wheezing Physical exam (Primary Care) Vital Signs: Last Vital Signs Pulse 61 01/27/24 13:22 BP 118/68 01/27/24 13:22 Pulse Ox 99 01/27/24 13:22 Oxygen Delivery Method Room Air 01/27/24 13:22 BMI result Body Mass Index 27.9 Tobacco/Smoking Status: Tobacco use Status Tobacco use date assessed 01/27/24 01/27/24 13:32 Patient Tobacco Use Status Never used Tobacco 01/27/24 13:23 e-Cigarette/Vaping Use Never Used 01/27/24 13:23 PHQ-9: PHQ-9 Score PHQ-9: Total score 0 01/27/24 14:08 Depression Screening Interpretation: Negative Thrive Assessment: Date of Thrive Assessment Date Thrive assessed 01/27/24 01/27/24 13:32 Currently or been in a relationship where the following occur: I choose not to answer Advance Care Planning discussion: Completed/Scanned Date of discussion: 01/27/24 Who was present: Patient Forms completed: Health Care Proxy and MOLST Time spent: 16-45 minutes Actual minutes spent: 16 Const General: cooperative, comfortable and no acute distress Orientation/consciousness: patient oriented x3 HENMT Head: Yes normocephalic Eyes General: appearance normal, both eyes and all related structures Neck Neck: Yes supple Chest Chest palpation & inspection: normal inspection of the chest Resp Effort & Inspection: normal respiratory effort, no cough and no stridor Cardio Rhythm: regular rhythm Heart sounds: S1 normal heart sound present and S2 normal heart sound present GI Other: Normal bowel sounds, soft, nontender with no mass palpated General: Yes no CVA tenderness Back/Spine/Pelvis Back: no CVA tenderness and No back tenderness Skin General skin exam: no rashes or lesions noted and turgor normal Neuro General: patient oriented x3, gait normal, tone normal, moves all extremities, Normal light touch and pain sensation, no focal motor deficits and CN's II-XI intact bilaterally Cranial nerves: Yes Normal hearing present Extrem Other: Garner's cyst right popliteal area, crepitus bilateral knees Right lower extremity: no edema Left lower extremity: no edema Psych Appearance: grossly normal and well kempt Mental Status: mental status grossly normal Affect: normal affect Attitude: cooperative Thought process: Normal thought process present Assessment and Plan Assessment & Plan (1) Essential hypertension: Code(s): I10 - Essential (primary) hypertension Plan: Blood pressure at goal of less than 130/80. Continue with current medication. Reinforced importance of following a low sodium diet, getting regular exercise, and lowering stress levels. (2) CAD (coronary artery disease): Code(s): I25.10 - Atherosclerotic heart disease of [place] coronary artery without angina pectoris Plan: Continue aspirin 81 mg daily and atorvastatin 40 mg daily reinforced importance controlling blood pressure and glucose levels as well as cholesterol levels. (3) Vitamin D deficiency: Code(s): E55.9 - Vitamin D deficiency, unspecified Plan: Ordered vitamin-D level check (4) Normocytic hypochromic anemia: Code(s): D50.9 - Iron deficiency anemia, unspecified Plan: CBC, vitamin B12 folic acid, iron profile and vitamin-D level ordered (5) Annual visit for general adult medical examination with abnormal findings: Code(s): Z00.01 - Encounter for general adult medical examination with abnormal findings Plan: Will check appropriate labs. Recommended dental visit every 6 months and regular eye exams, at least every 2 years. Take adequate calcium in diet and vitamin-D 3 at 2000 IU per cap once a day, in addition to weight-bearing exerci ses to help maintain good muscle tone and weight control. Instructed to do self testicular exam check for any mass, up-to-date with his colonoscopy. 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 Advanced Directives help patients prepare for current and future decisions about their medical treatment and place of care. Discussed with patient that it is a process where a patients current condition and prognosis are reviewed, their wishes for information regarding their illness are elicited, and likely medical dilemmas are presented and options discussed. Healthcare proxy and MOLST form completed today. These forms can be amended as needed, reviewed yearly and make changes as needed Orders: Orders Comprehensive [place]. Panel Fast 01/30/24 D50.9 - Iron deficiency anemia, unspecified, E55.9 - Vitamin D deficiency, unspecified, I10 - Essential (primary) hypertension, I25.10 - Atherosclerotic heart disease of [place] coronary artery without angina pectoris, N40.0 - Benign prostatic hyperplasia without lower urinary tract symptoms, Z00.01 - Encounter for general adult medical examination with abnormal findings, Z13.220 - Encounter for screening for lipoid disorders, Z86.19 - Personal history of other infectious and parasitic diseases Lipid Panel 01/30/24 D50.9 - Iron deficiency anemia, unspecified, E55.9 - Vitamin D deficiency, unspecified, I10 - Essential (primary) hypertension, I25.10 - Atherosclerotic heart disease of [place] coronary artery without angina pectoris, N40.0 - Benign prostatic hyperplasia without lower urinary tract symptoms, Z00.01 - Encounter for general adult medical examination with abnormal findings, Z13.220 - Encounter for screening for lipoid disorders, Z86.19 - Personal history of other infectious and parasitic diseases Vitamin B12 and Folate 01/30/24 D50.9 - Iron deficiency anemia, unspecified, E55.9 - Vitamin D deficiency, unspecified, I10 - Essential (primary) hypertension, I25.10 - Atherosclerotic heart disease of [place] coronary artery without angina pectoris, N40.0 - Benign prostatic hyperplasia without lower urinary tract symptoms, Z00.01 - Encounter for general adult medical examination with abnormal findings, Z13.220 - Encounter for screening for lipoid disorders, Z86.19 - Personal history of other infectious and parasitic diseases Vitamin D 25-OH Total 01/30/24 D50.9 - Iron deficiency anemia, unspecified, E55.9 - Vitamin D deficiency, unspecified, I10 - Essential (primary) hypertension, I25.10 - Atherosclerotic heart disease of [place] coronary artery without angina pectoris, N40.0 - Benign prostatic hyperplasia without lower urinary tract symptoms, Z00.01 - Encounter for general adult medical examination with abnormal findings, Z13.220 - Encounter for screening for lipoid disorders, Z86.19 - Personal history of other infectious and parasitic diseases Complete Blood Count Auto Diff 01/30/24 D50.9 - Iron deficiency anemia, unspecified, E55.9 - Vitamin D deficiency, unspecified, I10 - Essential (primary ) hypertension, I25.10 - Atherosclerotic heart disease of [place] coronary artery without angina pectoris, N40.0 - Benign prostatic hyperplasia without lower urinary tract symptoms, Z00.01 - Encounter for general adult medical examination with abnormal findings, Z13.220 - Encounter for screening for lipoid disorders, Z86.19 - Personal history of other infectious and parasitic diseases IRON PROFILE 01/30/24 D50.9 - Iron deficiency anemia, unspecified, E55.9 - Vitamin D deficiency, unspecified, I10 - Essential (primary) hypertension, I25.10 - Atherosclerotic heart disease of [place] coronary artery without angina pectoris, N40.0 - Benign prostatic hyperplasia without lower urinary tract symptoms, Z00.01 - Encounter for general adult medical examination with abnormal findings, Z13.220 - Encounter for screening for lipoid disorders, Z86.19 - Personal history of other infectious and parasitic diseases PSA,Total (Free>4and<10) 01/30/24 D50.9 - Iron deficiency anemia, unspecified, E55.9 - Vitamin D deficiency, unspecified, I10 - Essential (primary) hypertension, I25.10 - Atherosclerotic heart disease of [place] coronary artery without angina pectoris, N40.0 - Benign prostatic hyperplasia without lower urinary tract symptoms, Z00.01 - Encounter for general adult medical examination with abnormal findings, Z13.220 - Encounter for screening for lipoid disorders, Z86.19 - Personal history of other infectious and parasitic diseases Coding Level of Care Code Est Pt Prev Care >65y(13949) Diagnoses Essential hypertension I10 CAD (coronary artery disease) I25.10 Vitamin D deficiency E55.9 Normocytic hypochromic anemia D50.9 Annual visit for general adult medical examination with abnormal findings Z00.01 Bakers cyst M71.20 Osteoarthritis of right knee M17.11 Advanced directives, counseling/discussion Z71.89 Additional Codes Vital Signs *Quality* - Advance Care Planning discussion: Completed/Scanned ([id number]) Vital Signs *Quality* - Time spent: 16-45 minutes ([id number])
== END 2024-01-27 15:34 | disposition home or self-care (01) ==
PROVIDERS: PCP Internal Medicine; Visit Provider Internal Medicine
DX: Z00.00 Encounter for general adult medical examination without abnormal findings (principal); I10 Essential (primary) hypertension; I25.10 Atherosclerotic heart disease of native coronary artery without angina pectoris; E55.9 Vitamin D deficiency, unspecified; D50.9 Iron deficiency anemia, unspecified; M71.20 Synovial cyst of popliteal space [Baker], unspecified knee; M17.11 Unilateral primary osteoarthritis, right knee
CPT/HCPCS: 1123F; 99397; 99497

== ENCOUNTER 2024-01-30 10:21 | Outpatient (REF) | payer BC, SELFPAY ==
[2024-01-30 13:12] LABS: MANUAL DIFF FLAG NO
[2024-01-30 13:29] LABS: Basophils Absolute Auto 0.1 X10*3/uL (0.0-0.2); Eosinophils Absolute Auto 0.2 X10*3/uL (0.0-0.4); Eosinophils Percent Auto 3.8 % (0-4); Hematocrit 39.8 % (42.0-52.0); Hemoglobin 13.3 g/dl (14.0-18.0); Imm Gran Abs Auto 0.01 X10*3/uL (0.00-0.03); Imm Gran Pct Auto 0.2 % (0.0-0.4); Lymphocytes Absolute Auto 0.8 X10*3/uL (1.2-4.9); Lymphocytes Percent Auto 15.7 % (20-40); Mean Corpuscular HGB Conc 33.4 g/dl (31.0-36.0); Mean Corpuscular Hemoglobin 30.7 pg (27.0-33.0); Mean Corpuscular Volume 91.9 fL (80.0-98.0); Mean Platelet Volume 11.4 fL (9.4-12.4); Monocytes Absolute Auto 0.5 X10*3/uL (0.1-1.2); Neutrophils Absolute Auto 3.3 x10*3/uL (2.0-8.3); Neutrophils Percent Auto 69.3 % (45-73); Platelet Count 179 X10*3/uL (160-400); Red Blood Count 4.33 X10*6/uL (4.60-5.80); Red Cell Distribution Width 14.9 % (11.0-16.0); White Blood Count 4.8 X10*3/uL (4.8-10.8)
[2024-01-30 13:43] LABS: Alanine Aminotransferase 25 U/L (0-40); Albumin Level 3.5 g/dL (3.5-5.0); Alkaline Phosphatase 89 U/L (39-117); Anion Gap 12 (12-20); Aspartate Amino Transferase 27 U/L (5-37); Bilirubin Total 0.8 mg/dL (0.0-1.0); Blood Urea Nitrogen 19 mg/dL (9-16); Calcium 9.8 mg/dL (8.4-10.2); Carbon Dioxide 31 mmol/L (22-29); Chloride 102 mmol/L (96-108); Cholesterol 105 mg/dL (<200); Estimated Glomerular Filt Rate > 60; Glucose Fasting 86 mg/dL (60-99); HDL Cholesterol 49 mg/dL (>40); Iron 119 mcg/dL (45-160); LDL Cholesterol Calculated 44 mg/dL (<100); Percent Iron Saturation 64 % (15-50); Potassium 3.9 mmol/L (3.3-5.1); Sodium 141 mmol/L (135-145); Total Iron Binding Capacity 185 mcg/dL (228-428); Total Protein 8.2 g/dL (6.5-8.0); Triglycerides 62 mg/dL (<150); Unsaturated Iron Binding 66 ug/dL
[2024-01-30 13:57] LABS: PSA,Total (Free>4and<10) 3.24 ng/mL (0.00-4.00)
[2024-01-30 14:05] LABS: Vitamin D 25-OH Total 15.9 ng/mL (>30)
[2024-01-30 14:10] LABS: Folate 11.8 ng/mL (> or = 4.0); Vitamin B12 1023 pg/mL (200-900)
== END 2024-01-30 10:22 | disposition home or self-care (01) ==
LOC: HO.HMGCLDS 10:21
PROVIDERS: PCP Internal Medicine; Visit Provider Internal Medicine
DX: Z00.01 Encounter for general adult medical examination with abnormal findings (principal); Z13.220 Encounter for screening for lipoid disorders; Z12.5 Encounter for screening for malignant neoplasm of prostate; D50.9 Iron deficiency anemia, unspecified; E55.9 Vitamin D deficiency, unspecified; I25.10 Atherosclerotic heart disease of native coronary artery without angina pectoris; N40.0 Benign prostatic hyperplasia without lower urinary tract symptoms; I10 Essential (primary) hypertension; Z86.19 Personal history of other infectious and parasitic diseases
CPT/HCPCS: 36415; 80053; 80061; 82306; 82607; 82746; 83540; 84153; 85025

== ENCOUNTER 2025-02-17 11:17 | Outpatient (AMB) | payer MEDICARE, BC, SELFPAY ==
--- NOTE | 2025-02-17 11:46 | MHC.PC.OV ---
Vital Signs 02/17/25 11:47 Height 5 ft 9 in Weight 187 lb BMI 27.6 BP 126/70 Blood Pressure Location Rt brachial Position Sitting Respiration 16 Pulse 64 Pulse Source Pulse Oximeter Temp 97.6 F Temp Source Oral Pulse Oximetry (%) 100 Oxygen Delivery Method Room Air Intake Visit Reasons: bilateral hands numbness Intake Note: Pt is here today c/o bilateral hand numbness Allergies No Known Allergies Allergy (Verified 02/23/25 01:26) Medication List - Last Reconciled 02/23/25 by Pippa Mullins MD ascorbic acid (vitamin C) 1,000 mg PO DAILY aspirin (Adult Low Dose Aspirin) 81 mg PO DAILY atorvastatin 40 mg PO DAILY cholecalciferol (vitamin D3) 1,250 mcg PO QWEEK 3 months ferrous sulfate (FeroSul) 325 mg PO DAILY furosemide 40 mg PO BID potassium chloride ER 20 mEq PO DAILY turmeric root extract 538 mg PO DAILY Tobacco use date assessed: 02/17/25 Fall risk assessment: No Falls in past year Last assessed Fall Risk: 02/17/25 Dental Screening Dental Screen Date: 02/17/25 Did you have a dental visit in the last 12 months?: Yes Did you have a dental problem in the last 6 months where you did not have access to dental care?: No Was dental information given to patient?: Patient has dentist HPI bilateral hands numbness HPI Details - The patient is a 79-year-old male with history of hypertension, hyperlipidemia, CAD status post CABG x4, history of vitamin-D deficiency and normocytic normochromic anemia, and benign prostatic hyperplasia, here today for his physical exam. -you also complains of intermittent numbness in the hands.- The numbness affects the right thumb and tips of two fingers, persisting for months without pain or tingling. - Recent Lyme disease treated with doxycycline, with resolved symptoms of chills and fatigue. - History of knee replacement surgery with satisfactory recovery. - Low vitamin D and iron levels noted, despite adequate outdoor activity and non-vegetarian diet. -up-to-date with colon cancer screening, last done by Dr. Castro, due again for repeat colonoscopy screening in 2026 - Up-to-date vaccinations except for COVID booster, with no plans for further vaccination. [facility] Medical History (Updated 02/19/25 @ 13:03 by Pippa Mullins MD) Elevated PSA, less than 10 ng/ml Numbness and tingling in both hands Pain in left knee Tingling in extremities Hypotension Normocytic hypochromic anemia Right knee pain Vitamin D deficiency Anemia CAD (coronary artery disease) Hx of non-ST elevation myocardial infarction (NSTEMI) Degenerative joint disease of knee History of migraine Benign prostatic hyperplasia History of Lyme disease Essential hypertension Surgical History (Updated 02/19/25 @ 13:00 by Pippa Mullins MD) History of cataract surgery S/P CABG x 4 History of tonsillectomy History of hemorrhoidectomy History of laminectomy Family History Father CAD (coronary artery disease) Social History Housing: House Patient Tobacco Use Status: Never used Tobacco e-Cigarette/Vaping Use: Never 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 1. Little interest or pleasure in doing things: not at all 2. Feeling down, depressed, or hopeless: not at all 3. Trouble falling or staying asleep, or sleeping too much: not at all 4. Feeling tired or having little energy: not at all 5. Poor appetite or overeating: not at all 6. Feeling bad about yourself - or that you are a failure or have let yourself or your family down: not at all 7. Trouble concentrating on things, such as reading the newspaper or watching television: not at all 8. Moving or speaking so slowly that other people could have noticed. Or the opposite - being so fidgety or restless that you have been moving around a lot more than usual: not at all 9. Thoughts that you would be better off or of hurting yourself in some way: not at all Total score: 0 Depression Screening Interpretation: Negative Depression Screening Done: Yes 51262 - PHQ-9 Billing: Yes Source: Developed by Drs. Ernie Snowden, Yessica Murry, Jabier Erazo and colleagues, with an educational caryl from [employer]. Thrive Questionnaire Date Thrive assessed: 02/17/25 I am a: Patient What is your living situation today?: I have a steady place to live Within the past 12 months, did the food you bought not last and you didn't have the money to get more?: I choose not to answer this question Within the past 12 months, did you worry whether your food would run out before you got money to buy more?: I choose not to answer this question Do you have trouble paying for medicines?: I choose not to answer this question Do you have trouble getting transportation to medical appointments?: I choose not to answer this question Do you have trouble paying your heating and electricity bill?: I choose not to answer this question Do you have trouble taking care of your child, family member or friend?: I choose not to answer this question Do you have trouble with day-to-day activities such as bathing, preparing meals, shopping, managing finances, etc.?: I choose not to answer this question Are you currently unemployed and looking for a job?: I choose not to answer this question Are you interested in more education?: I choose not to answer this question Please select the resources that you would like help with: None Currently or been in a relationship where the following occur: I choose not to answer THRIVE Score: 0 AUDIT C Alcohol Use Questionnaire (AUDIT-C) 1. How often do you have a drink containing alcohol?: Monthly or less 2. How many drinks containing alcohol do you have on a typical day when you are drinking?: 1 or 2 3. How often do you have six or more drinks on one occasion?: Never Total Score: 1 KACEY-7 AMB Questionnaire KACEY-7 Date KACEY - 7 assessed: 01/27/24 Feeling nervous, anxious, or on edge: 0 = Not at all Not being able to stop or control worryin = Not at all Worrying too much about different things: 0 = Not at all Trouble relaxin = Not at all Being so restless that it is hard to sit still: 0 = Not at all Becoming easily annoyed or irritable: 0 = Not at all Feeling afraid as if something awful might happen: 0 = Not at all Total KACEY-7 score (0-4 normal; 5-9 mild; 10-14 moderate; 15-21 severe): 0 Source: Developed by Drs. Ernie Snowden, Yessica Murry, Jabier Erazo and colleagues, with an educational caryl from [employer]. Review of Systems Const All systems reviewed & are unremarkable except as noted in HPI and below ENT Reports Normal hearing present Neuro Reports Normal hearing present Physical exam (Primary Care) Vital Signs: Last Vital Signs Temp 97.6 F 02/17/25 11:47 Pulse 64 02/17/25 11:47 Resp 16 02/17/25 11:47 BP 126/70 02/17/25 11:47 Pulse Ox 100 02/17/25 11:47 Oxygen Delivery Method Room Air 02/17/25 11:47 BMI result Body Mass Index 27.6 Tobacco/Smoking Status: Tobacco use Status Tobacco use date assessed 02/17/25 02/17/25 11:51 Patient Tobacco Use Status Never used Tobacco 02/17/25 11:51 e-Cigarette/Vaping Use Never Used 02/17/25 11:51 PHQ-9: PHQ-9 Score PHQ-9: Total score 0 02/17/25 12:31 Depression Screening Interpretation: Negative Thrive Assessment: Date of Thrive Assessment Date Thrive assessed 01/27/24 02/17/25 11:51 Currently or been in a relationship where the following occur: I choose not to answer Const Other: Alert oriented x3, no acute distress ambulatory with normal gait General: cooperative, comfortable and no acute distress Orientation/consciousness: oriented to person and patient oriented x3 HENNC Head: Yes normocephalic Ears: other (Has hearing aids) General nose exam: Normal external nose present Face and sinus: Yes face symmetric Mouth: Normal oral and palatal mucosa present and moist mucous membranes Eyes General: appearance normal, both eyes and all related structures Neck Neck: Yes no meningeal signs Chest Chest palpation & inspection: normal inspection of the chest Resp Effort & Inspection: normal respiratory effort, no cough and no stridor Auscultation: clear to auscultation bilaterally Cardio Other: S1-S2 present regular rate and rhythm Rhythm: regular rhythm Heart sounds: S1 normal heart sound present and S2 normal heart sound present GI Other: Normal bowel sounds, soft with a nontender to palpation no mass palpated General: Yes no CVA tenderness Back/Spine/Pelvis Back: no CVA tenderness and No back tenderness Skin General skin exam: no rashes or lesions noted Neuro General: oriented to person, patient oriented x3, gait normal, moves all extremities, Normal light touch and pain sensation, no meningeal signs and no focal motor deficits Cranial nerves: Yes Normal hearing present Extrem Other: Garner's cyst right popliteal area, crepitus bilateral knees General: Yes full ROM, Yes no joint enlargement, Yes no clubbing, cyanosis or edema and Yes normal gait Right lower extremity: no edema Left lower extremity: no edema Psych Appearance: grossly normal and well kempt Mental Status: mental status grossly normal Affect: normal affect Thought process: Normal thought process present Coding Level of Care Code Est Pt Prev Care >65y(83400) Diagnoses Numbness and tingling in both hands R20.0; R20.2 Essential hypertension I10 Vitamin D deficiency E55.9 Normocytic hypochromic anemia D50.9 Additional Codes PHQ-9 - 56442 - PHQ-9 Billing: Yes ([id number]) Assessment & Plan Assessment & Plan (1) Numbness and tingling in both hands: Code(s): R20.0 - Anesthesia of skin; R20.2 - Paresthesia of skin Category: Medical (2) Essential hypertension: Code(s): I10 - Essential (primary) hypertension Category: Medical (3) Vitamin D deficiency: Code(s): E55.9 - Vitamin D deficiency, unspecified Category: Medical (4) Normocytic hypochromic anemia: Code(s): D50.9 - Iron deficiency anemia, unspecified Category: Medical Plan Plan Patient was informed and verbally consented to the use of an ambient scribe for clinic note documentation during this visit. 1. Numbness and tingling The patient presents with numbness in the right thumb and tips of two fingers, suspected to be carpal tunnel syndrome. A nerve conduction study has been ordered to confirm the diagnosis and assess the severity of the condition. 2. Lyme Disease The patient was recently diagnosed with Lyme disease and treated with a 10-day course of doxycycline. Symptoms of chills and fatigue have resolved. No further treatment is required at this time, but a follow-up Lyme titer was considered unnecessary due to recent positive results. 3. Vitamin D Deficiency The patient has a history of low vitamin D levels. A vitamin D level check has been ordered to assess the current status and guide supplementation if necessary. 4. Iron Deficiency The patient has a history of low iron levels. An iron profile has been ordered to evaluate the current status and determine the need for further intervention. 5. Preventative Care The patient is up-to-date with vaccinations except for the COVID booster, which he has no plans to receive. No further colonoscopy is needed as per previous benign findings. A comprehensive metabolic panel and other relevant labs have been ordered as part of routine health maintenance.Fasting labs ordered today. Reviewed EMG and nerve conduction study for further evaluation and management, follow-up after study done Orders: Orders NE electromyogram (EMG) 02/17/25 R20.0 - Anesthesia of skin, R20.2 - Paresthesia of skin Lipid Panel 02/17/25 D50.9 - Iron deficiency anemia, unspecified, E55.9 - Vitamin D deficiency, unspecified, I10 - Essential (primary) hypertension, I25.10 - Atherosclerotic heart disease of [place] coronary artery without angina pectoris, I25.2 - Old myocardial infarction, R20.0 - Anesthesia of skin, R20.2 - Paresthesia of skin Complete Blood Count Auto Diff 02/17/25 D50.9 - Iron deficiency anemia, unspecified, E55.9 - Vitamin D deficiency, unspecified, I10 - Essential (primary) hypertension, I25.10 - Atherosclerotic heart disease of [place] coronary artery without angina pectoris, I25.2 - Old myocardial infarction, R20.0 - Anesthesia of skin, R20.2 - Paresthesia of skin IRON PROFILE 02/17/25 D50.9 - Iron deficiency anemia, unspecified, E55.9 - Vitamin D deficiency, unspecified, I10 - Essential (primary) hypertension, I25.10 - Atherosclerotic heart disease of [place] coronary artery without angina pectoris, I25.2 - Old myocardial infarction, R20.0 - Anesthesia of skin, R20.2 - Paresthesia of skin Vitamin B12 and Folate 02/17/25 D50.9 - Iron deficiency anemia, unspecified, E55.9 - Vitamin D deficiency, unspecified, I10 - Essential (primary) hypertension, I25.10 - Atherosclerotic heart disease of [place] coronary artery without angina pectoris, I25.2 - Old myocardial infarction, R20.0 - Anesthesia of skin, R20.2 - Paresthesia of skin NE nerve conduction velocity 02/17/25 R20.0 - Anesthesia of skin, R20.2 - Paresthesia of skin Comprehensive Exira. Panel Fast 02/17/25 D50.9 - Iron deficiency anemia, unspecified, E55.9 - Vitamin D deficiency, unspecified, I10 - Essential (primary) hypertension, I25.10 - Atherosclerotic heart disease of [place] coronary artery without angina pectoris, I25.2 - Old myocardial infarction, R20.0 - Anesthesia of skin, R20.2 - Paresthesia of skin Creatine Kinase Total 02/17/25 D50.9 - Iron deficiency anemia, unspecified, E55.9 - Vitamin D deficiency, unspecified, I10 - Essential (primary) hypertension, I25.10 - Atherosclerotic heart disease of [place] coronary artery without angina pectoris, I25.2 - Old myocardial infarction, R20.0 - Anesthesia of skin, R20.2 - Paresthesia of skin TSH reflex Free T4 02/17/25 D50.9 - Iron deficiency anemia, unspecified, E55.9 - Vitamin D deficiency, unspecified, I10 - Essential (primary) hypertension, I25.10 - Atherosclerotic heart disease of [place] coronary artery without angina pectoris, I25.2 - Old myocardial infarction, R20.0 - Anesthesia of skin, R20.2 - Paresthesia of skin Vitamin D 25-OH Total 02/17/25 D50.9 - Iron deficiency anemia, unspecified, E55.9 - Vitamin D deficiency, unspecified, I10 - Essential (primary) hypertension, I25.10 - Atherosclerotic heart disease of [place] coronary artery without angina pectoris, I25.2 - Old myocardial infarction, R20.0 - Anesthesia of skin, R20.2 - Paresthesia of skin PSA,Total (Free>4and<10) 02/17/25 D50.9 - Iron deficiency anemia, unspecified, E55.9 - Vitamin D deficiency, unspecified, I10 - Essential (primary) hypertension, I25.10 - Atherosclerotic heart disease of [place] coronary artery without angina pectoris, I25.2 - Old myocardial infarction, R20.0 - Anesthesia of skin, R20.2 - Paresthesia of skin
[2025-02-17 11:47] VITALS: BP 126/70; PULSE 64; RESP 16; TEMP 36.4; O2SAT 100; BMI 27.6
--- OUTSIDE RECORDS SUMMARY | 2025-02-17 12:11 | XMS_ITS | Patient Health Record ---
Author Organization [facility] Address [address] [place] [id number] Care Team Providers Care Slitting And Shipping Supervisor Name Role Phone Susanna LOMBARDO, Pippa Primary Care Provider Ernie Champagne Unavailable [phone] Reason For Referral No Information Medications Medication SIG (Take, Route, Fr equency, Duration) Notes Start Date End Date Status Vitamin C 500 MG Orally Act sonu Losartan Potassium-HCTZ Active Problems Problem Type SNOMED Code ICD Code Onset Dates Problem Status W/U Status Risk Notes Problem 025198491 Encounter for screening for malignant neoplasm of colon (Z12.11) Active confirmed Problem 030900295 History of adenomatous polyp of colon (Z86.010) Active confirmed Problem Screening for malignant neoplasm of rectum (528298519) Encounter for screening for malignant neoplasm of rectum (Z12.12) Active confirmed Problem [id number] Preprocedural examination (Z01.818) Active confirmed Plan Of Treatment Pending Test Test Name Order Date GI BIOPSY 11/21/2016 Future Test Test Name Order Date COLONOSCOPY 08/28/2016 Insurance Providers Payer Name Payer Address Payer Phone Subscriber Number Group Number Insured Name Patient Relationship to Insured Coverage Start Date Coverage End Date [facility] [address] [place], [place] [id number] [phone] [id number] BARBARA ARMSTRONG Self - patient is the insured Medical (General) History Medical History History ICD Code Tubular adenoma removed in with Dr. Ward; colonoscopies in 2005 and on 08-21-2010 with removal of hyperplastic polyps Denies NE,DM,CVA,Lung disease,renal dise ase HTN Surgical History Surgery Date(Month/Year) Back surgery Hemorrhoid surgery
== END 2025-02-17 12:34 | disposition home or self-care (01) ==
PROVIDERS: PCP Internal Medicine; Visit Provider Internal Medicine
DX: Z00.00 Encounter for general adult medical examination without abnormal findings (principal); R20.0 Anesthesia of skin; R20.2 Paresthesia of skin; I10 Essential (primary) hypertension; E55.9 Vitamin D deficiency, unspecified; D50.9 Iron deficiency anemia, unspecified

== ENCOUNTER 2025-02-17 11:17 | Outpatient (REF) | payer MEDICARE, BC, SELFPAY ==
[2025-02-17 16:21] LABS: MANUAL DIFF FLAG NO
[2025-02-17 16:23] LABS: Hematocrit 40.2 % (42.0-52.0); Hemoglobin 13.4 g/dl (14.0-18.0); Imm Gran Abs Auto 0.02 X10*3/uL (0.00-0.03); Imm Gran Pct Auto 0.3 % (0.0-0.4); Lymphocytes Absolute Auto 2.3 X10*3/uL (1.2-4.9); Mean Corpuscular HGB Conc 33.3 g/dl (31.0-36.0); Mean Corpuscular Hemoglobin 30.4 pg (27.0-33.0); Mean Corpuscular Volume 91.2 fL (80.0-98.0); NRBC Abs Auto 0.000 X10*3/uL (0.0-0.012); NRBC Pct Auto 0.0 /100WBC (0.0-0.2); Platelet Count 224 X10*3/uL (160-400); Red Blood Count 4.41 X10*6/uL (4.60-5.80); White Blood Count 6.3 X10*3/uL (4.8-10.8)
[2025-02-17 17:07] LABS: Alanine Aminotransferase 24 U/L (0-40); Albumin Level 3.9 g/dL (3.5-5.0); Alkaline Phosphatase 131 U/L (39-117); Anion Gap 13 (12-20); Aspartate Amino Transferase 36 U/L (5-37); Blood Urea Nitrogen 20 mg/dL (9-16); Calcium 9.5 mg/dL (8.4-10.2); Carbon Dioxide 28 mmol/L (22-29); Chloride 101 mmol/L (96-108); Cholesterol 105 mg/dL (<200); Estimated Glomerular Filt Rate > 60; HDL Cholesterol 45 mg/dL (>40); Iron 66 mcg/dL (45-160); Percent Iron Saturation 35 % (15-50); Potassium 3.9 mmol/L (3.3-5.1); Sodium 138 mmol/L (135-145); Total Iron Binding Capacity 189 mcg/dL (228-428); Total Protein 8.7 g/dL (6.5-8.0); Triglycerides 59 mg/dL (<150); Unsaturated Iron Binding 123 ug/dL
[2025-02-17 17:08] LABS: PSA,Total (Free>4and<10) 4.73 ng/mL (0.00-4.00)
[2025-02-17 17:21] LABS: Folate 12.0 ng/mL (> or = 4.0); Vitamin B12 436 pg/mL (200-900)
[2025-02-19 11:59] LABS: Free Prostate Spec Ag 1.1 ng/mL; Percent Free Prostate Spec Ag 27 % (calc) (>25)
== END 2025-02-17 11:18 | disposition home or self-care (01) ==
LOC: HO.HMGCLDS 11:17
PROVIDERS: PCP Internal Medicine; Visit Provider Internal Medicine
DX: Z12.5 Encounter for screening for malignant neoplasm of prostate (principal); I10 Essential (primary) hypertension; I25.2 Old myocardial infarction; E55.9 Vitamin D deficiency, unspecified; I25.10 Atherosclerotic heart disease of native coronary artery without angina pectoris; D50.9 Iron deficiency anemia, unspecified; R20.0 Anesthesia of skin; R20.2 Paresthesia of skin; Z79.82 Long term (current) use of aspirin; Z79.899 Other long term (current) drug therapy
CPT/HCPCS: 36415; 80053; 80061; 82306; 82550; 82607; 82746; 83540; 84153; 84154; 84443; 85025; 96127; 99397

== ENCOUNTER 2025-04-19 10:36 | Outpatient (AMB) | payer MEDICARE, BC, SELFPAY ==
--- NOTE | 2025-04-19 10:59 | A.OFFVIS_ITS ---
Intake Visit Reasons: elevated PSA Intake Note: New patient presents today for initial visit for elevated PSA * 02/17 Total PSA:4.73 Urology Medication:Potassium Blood Thinner:Aspirin Antibiotic Allergies:None PVR:0ml Allergies No Known Allergies Allergy (Verified 04/19/25 11:01) Medication List - Last Reconciled 04/19/25 by Domi Chu MD ascorbic acid (vitamin C) 1,000 mg PO DAILY aspirin (Adult Low Dose Aspirin) 81 mg PO DAILY atorvastatin 40 mg PO DAILY cholecalciferol (vitamin D3) 1,250 mcg PO QWEEK 3 months ferrous sulfate (FeroSul) 325 mg PO DAILY furosemide 40 mg PO BID potassium chloride ER 20 mEq PO DAILY turmeric root extract 538 mg PO DAILY HPI Comments Details: Ramon is a 79-year-old male who is here as a new patient evaluation for elevated PSA he had blood work done on 02/17 PSA was 4.73 ng/mL. History of coronary artery disease status post CABGx4 on aspirin 81 mg daily. History of Present Illness The patient is a 79-year-old male presenting with elevated prostate-specific antigen (PSA) levels. The PSA level was recorded at 4.73 mg/mL on 02/17/25, which is above the normal range of 0 to 4 mg/mL. Previous PSA levels were 3.24 mg/mL on 01/30/24 and 2.62 mg/mL on 07/03/21, indicating a gradual increase over time.The patient reports no significant urinary symptoms, although he occasionally experiences a slower urine flow at night, requiring more time to void. He typically wakes up once per night to urinate. The patient has a family history of bladder cancer, as his father was diagnosed with the condition. There is no known family history of prostate or colon cancer. Results - PSA level on 02/17/25: 4.73 mg/mL - PSA level on 01/30/24: 3.24 mg/mL - PSA level on 07/03/21: 2.62 mg/mL Plan Elevated Prostate-Specific Antigen (Psa) - Order an ultrasound of the urinary tract including prostate to assess prostate size. - Repeat PSA test to monitor levels. - Consider prostate biopsy if further investigation is needed to rule out malignancy. - Discuss potential medication options if prostate enlargement is confirmed. [facility] Medical History Elevated PSA, less than 10 ng/ml Numbness and tingling in both hands Pain in left knee Tingling in extremities Hypotension Normocytic hypochromic anemia Right knee pain Vitamin D deficiency Anemia CAD (coronary artery disease) Hx of non-ST elevation myocardial infarction (NSTEMI) Degenerative joint disease of knee History of migraine Benign prostatic hyperplasia History of Lyme disease Essential hypertension Surgical History History of cataract surgery S/P CABG x 4 History of tonsillectomy History of hemorrhoidectomy History of laminectomy Family History Father CAD (coronary artery disease) Social History Housing: House Patient Tobacco Use Status: Never used Tobacco e-Cigarette/Vaping Use: Never 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) Current occupational status: retired Cognitive needs: No Hearing needs: No Vision needs: Yes Review of Systems Const All systems reviewed & are unremarkable except as noted in HPI and below Reports no additional complaints Eyes Reports no additional complaints ENT Reports no additional complaints Card Reports no additional complaints Resp Reports no additional complaints GI Reports no additional complaints Reports as per HPI Musc Reports no additional complaints Skin/Breast Reports system reviewed and no additional complaints, except as documented Neuro Reports no additional complaints Psych Reports no additional complaints Endo Reports no additional complaints Maciel/Lymph Reports no additional complaints Aller/Immun Reports no additional complaints Physical Exam Const General: healthy appearing, no acute distress and well developed Orientation/consciousness: patient oriented x3 HEENT Head: Yes normocephalic and Yes atraumatic Eyes Conjunctivae: conjunctivae normal Neck Neck: Yes normal visual inspection Chest Chest palpation & inspection: normal inspection of the chest Resp Effort & Inspection: normal respiratory effort GI Inspection: Yes normal to inspection Neuro General: patient oriented x3 Psych Appearance: grossly normal Affect: normal affect Office Procedures Post Void Residual Post Residual Void Post Void Residual (PVR): 0 [id number] Void Residual by ultrasound Assessment & Plan Assessment & Plan (1) BPH with elevated PSA: Code(s): N40.0 - Benign prostatic hyperplasia without lower urinary tract symptoms; R97.20 - Elevated prostate specific antigen [PSA] Category: Medical Plan Plan Elevated Prostate-Specific Antigen (Psa) - Order an ultrasound of the urinary tract including prostate to assess prostate size. - Repeat PSA test to monitor levels. - Consider prostate biopsy if further investigation is needed to rule out malignancy. - Discuss potential medication options if prostate enlargement is confirmed. Orders: Orders US retroperitoneal comp Today N40.0 - Benign prostatic hyperplasia without lower urinary tract symptoms, R97.20 - Elevated prostate specific antigen [PSA] AMB Urinalysis Automated Today N40.0 - Benign prostatic hyperplasia without lower urinary tract symptoms Patient Instructions: The patient had an opportunity to ask questions regarding treatment plan. The patient expressed understanding and agreement with the above treatment plan. The patient is aware they should contact our office by phone for worsening of their current condition or the appearance of new symptoms. Compliance is encouraged with any medications and followup testing that is ordered. It is a privilege to be allowed the opportunity to participate in the urologic care of your patient. If you have any questions or concerns regarding treatment for the above conditions please do not hesitate to contact me. The office telephone contact is [phone]. This note is constructed in part using voice recognition software. While every effort has been made to ensure accuracy pharmacy clinical coordinator errors may have been included. Yours sincerely, Domi Chu MD Scribe Plan - Not visible on output: Patient was informed and verbally consented to the use of an ambient scribe for clinic note documentation during this visit. Coding Level of Care Code New Pt Level 4 (49548) Diagnoses BPH with elevated PSA N40.0; R97.20 CPT Codes Post Residual Void - PVR CPT Code: 59102-Fwey Void Residual by ultrasound ([id number])
== END 2025-04-19 11:39 | disposition home or self-care (01) ==
LOC: HO.HUSH 10:37
PROVIDERS: PCP Internal Medicine; Visit Provider Urology
DX: N40.0 Benign prostatic hyperplasia without lower urinary tract symptoms (principal); R97.20 Elevated prostate specific antigen [PSA]
CPT/HCPCS: 99204

== ENCOUNTER → 2025-04-19 10:36 | Outpatient (BNVA) | payer MEDICARE, BC, SELFPAY | PROVIDERS: PCP Internal Medicine; Visit Provider Urology | DX: N40.0 Benign prostatic hyperplasia without lower urinary tract symptoms (principal); R97.20 Elevated prostate specific antigen [PSA] | CPT/HCPCS: 51798; 81003; 99202 ==

== ENCOUNTER 2025-04-20 10:20 | Outpatient (REF) | payer MEDICARE, BC, SELFPAY ==
--- NOTE | 2025-04-20 10:23 | EMG_ITS ---
Chief complaint:?R20.0 Anesthesia of skin R20.2 Paresthesia of skin Reason for referral: Numbness and tingling in both hands Referred by:?Pippa Mullins MD Procedure done: Bilateral upper extremities NCS/EMG Bilateral median and ulnar motor studies were performed. Bilateral median and ulnar mixed sensory studies, and radial sensory studies were performed. EMG needle examination is performed. Findings: Bilateral median motor distal latencies are moderately prolonged with mild slowing on the right side. Correspondingly, median distal latencies of sensory studies are moderately prolonged with conduction velocities in 20s. Right ulnar mixed distal latencies is also prolonged with conduction velocity in 30s. Ulnar motor study on right revealed slight reduction of amplitude across elbow. Impression: 1. 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 Codin [id number] 2 extremities MTDD
--- OUTSIDE RECORDS SUMMARY | 2025-04-20 12:42 | XMS_ITS | Patient Health Record ---
Author Organization [facility] Address [address] [place] [id number] Care Team Providers Care Craft Superintendent Name Role Phone Susanna LOMBARDO, Pippa Primary Care Provider Ernie Champagne Unavailable [phone] Reason For Referral No Information Medications Medication SIG (Take, Route, Fr equency, Duration) Notes Start Date End Date Status Vitamin C 500 MG Orally Act sonu Losartan Potassium-HCTZ Active Problems Problem Type SNOMED Code ICD Code Onset Dates Problem Status W/U Status Risk Notes Problem Screening for malignant neoplasm of colon (004960254) Encounter for screening for malignant neoplasm of colon (Z12.11) Active confirmed Problem History of adenomatous polyp of colon (016077563) History of adenomatous polyp of colon (Z86.010) Active confirmed Problem Screening for malignant neoplasm of rectum (886223724) Encounter for screening for malignant neoplasm of rectum (Z12.12) Active confirmed Problem Preprocedural examination (294736455926015) Preprocedural examination (Z01.818) Active confirmed Plan Of Treatment Pending Test Test Name Order Date GI BIOPSY 11/21/2016 Future Test Test Name Order Date COLONOSCOPY 08/28/2016 Insurance Providers Payer Name Payer Address Payer Phone Subscriber Number Group Number Insured Name Patient Relationship to Insured Coverage Start Date Coverage End Date [facility] [address] [place], [place] [id number] [phone] [id number] BARBARA ARMSTRONG Self - patient is the insured Medical (General) History Medical History History ICD Code Tubular adenoma removed in with Dr. Ward; colonoscopies in 2005 and on 08-21-2010 with removal of hyperplastic polyps Denies PA,DM,CVA,Lung disease,renal dise ase HTN Surgical History Surgery Date(Month/Year) Back surgery Hemorrhoid surgery
--- OUTSIDE RECORDS SUMMARY | 2025-04-20 12:42 | XMS_ITS | Data Portability ---
Author Organization [place] [facility] Address [address] [place] [phone] Care Team Providers Care Residential Sales Manager Name Role Phone MONICA HOWARD Primary Care Provider [phone] Assessment Encounter Date Assessment Date Assessment LastModified by Organization Details LastModified Time 05/13/2022 05/13/2022 Time On Scene with Patient: 00:47:45 Mr. Bond is a 76 yo male new to whose cc is dyspnea on some exertion x over a week. [place] [facility] [place] After surgery he did develop pleural effusions (1) on right and (1) on left both times he required pleural drainage. He saw his LOG MANAGER 4 days ago for dyspnea, chest xray at that time revealed bilateral pleural effusions mild, unchanged from previous xray. The LOG MANAGER also did labs, ProBNP 250, Electrolytes WNL, renal function WNL, she increased his lasix to 40 mg BID. He has not noted ay increase in urine otput, nor has he noted improvement in his dyspnea. He denies peripheral edema. DDX included but not limited to pneumonia, which was ruled out with chest x-ray. WBC WNL, H/H unchanged from previous cbc. CHF is doubtful, ProBNP within normal limits 4 days ago, no peripheral edema. he has no chest pain, no arm pain no neck pain He sleeps on 1 pillow and has been sleeping well. despite having shortness of breath when he goes up stairs, he feels well. All labs and xrays have been reviewed via [facility]. Not available 05/13/2022 18:17:27 Plan of Treatment Reminders Order Date Submit Date Provider Last Modified By Organization Details Last Modified Time Details Appointments None record ed. Lab None record ed. Referral None record ed. Procedures None record ed. Surgeries None record ed. Imaging None record ed. Medication Orders None record ed. Patient TargetsNo targets recorded. Patient InstructionsNo instructions recorded. Reason for Referral None Reported. Medical Equipment None Reported. Allergies No known drug allergies Medications Name Sig Start Date Stop Date Status Note LastModified by Organization Details LastModified Time losartan 50 mg tablet TAKE 1 TABLET BY MOUTH EVERY MORNING 05/13 completed Not Available Not Available Not Available furosemide 40 mg tablet TAKE 1 TABLET BY MOUTH TWICE DAILY active Not Available Not Available No t Available atorvastati n 40 mg tablet TAKE 1 TABLET BY MOUTH DAILY active Not Available Not Available No t Available atorvastati n 80 mg tablet TAKE 1 TABLET BY MOUTH DAILY 05/13 completed Not Available Not Available Not Available potassium chloride ER 10 mEq capsule,ext ended release TAKE 1 CAPSULE BY MOUTH TWICE a Day active Not Available Not Available No t Available doxycycline hyclate 100 mg capsule TAKE 1 CAPSULE BY MOUTH TWICE DAILY FOR 10 DAYS 05/13 completed Not Available Not Available Not Available amiodarone 200 mg tablet TAKE 1 TABLET BY MOUTH TWO TIMES A DAY active Not Available Not Available No t Available benzonatate 200 mg capsule TAKE 1 CAPSULE BY MOUTH THREE TIMES DAILY NEEDED FOR COUGH active Not Available Not Available No t Available isosorbide mononitrate ER 30 mg tablet,exte nded release 24 hr TAKE 1 TABLET BY MOUTH DAILY active Not Available Not Available No t Available potassium chloride ER 10 mEq tablet,exte nded release TAKE 1 TABLET BY MOUTH DAILY 05/13 completed Not Available Not Available Not Available clopidogrel 75 mg tablet TAKE 1 TABLET BY MOUTH DAILY active Not Available Not Available No t Available amlodipine 5 mg tablet TAKE 1 TABLET BY MOUTH DAILY 05/13 completed Not Available Not Available Not Available ketorolac 0.5 % eye drops active Not Available Not Available Not Available Mi-Acid Gas Relief (simethicon e) 80 mg chewable tablet CHEW AND SWALLOW 1 TABLET BY MOUTH FOUR TIMES DAILY active Not Available Not Available No t Available tamsulosin 0.4 mg capsule TAKE 1 CAPSULE BY MOUTH DAILY active Not Available Not Available No t Available losartan 25 mg tablet TAKE 1 TABLET BY MOUTH DAILY active Not Available Not Available No t Available hydrochloro thiazide 12.5 mg capsule TAKE 1 CAPSULE BY MOUTH EVERY MORNING 05/13 completed Not Available Not Available Not Available diclofenac sodium 75 mg tablet,lopez yed release TAKE 1 TABLET BY MOUTH EVERY 12 HOURS WITH FOOD OR MILK DIRECTED 05/13 completed Not Available Not Available Not Available furosemide 20 mg tablet TAKE 1 TABLET BY MOUTH DAILY 05/13 completed Not Available Not Available Not Available metoprolol succinate ER 25 mg tablet,exte nded release 24 hr TAKE 1 TABLET BY MOUTH DAILY. DO NOT CRUSH OR CHEW. CALL IF ANY SIGNIFICA NT LIGHTHEAD EDNESS active Not Available Not Available No t Available Ferrocite 324 mg (106 mg iron) tablet TAKE 1 TABLET BY MOUTH DAILY WITH MEALS AND VITAMIN CAPSULE active Not Available Not Available No t Available aspirin active Not Available Not Avail able Not Available cholecalcif lorin (vitamin D3) 1,250 mcg (50,000 unit) capsule TAKE 1 CAPSULE BY MOUTH ONCE A WEEK active Not Available Not Available No t Available Vitals Date Recorded Respiratory rate Body temperature Heart rate Oxygen saturation Oxygen saturation in Arterial blood by Pulse oximetry Systolic And Diastolic Provider Name and Address Organization Details Last Updated DateTime 20 /min 97.7 [degF] 72 /min 98 % 98 % 140/88 mm[Hg] Not Available [facility] 17:16:15 Social History None recorded. Functional Status None recorded. Mental Status None recorded. Family History Nothing Reported. Medical History No medical history recorded. Past Encounters Encounter ID Performer Location Encounter Start Date Encounter Closed Date Diagnosis/Indication Diagnosis SNOMED-CT Code Diagnosis ICD10 Code Diagnosis IMO Codes Diagnosis Note [id number] SOPHIA Mora [facility] [place] [facility] [place] [address] [place] [address] 05/13/2022 15:44:45 05/14/2022 14:44:23 Bilateral pleural effusion [id number] J90 Continue with current medication s, call Cardiology in morning , continue monitoring your weight. Be sure to let them know no increase in urine output with increase in furosemide to 80 mg. a day.. Given ED precaution s. Health Concerns Section Related Observation LastModified by Organization Detai ls LastModified Time None Recorded Concern Status LastModified by Organization Details LastModified Time None Recorded Advance Directives Directive None Recorded Payers Insurance Date Sequence Insurance Name Policy Number Policy Jimenez Covered Member ID Jimenez Member ID Guarantor Name 05/14/2022 2 [employer] BLUE CROSS - FEP 106 Ramon Bond [id number] Yessica Bond 05/13/2022 1 *SELF PAY* Ramon Moultonlenkadelfino [id number] Yessicaviktoriya Bond 05/13/2022 2 [place]: FEDERAL EMPLOYEE PROGRAM (STANDARD AND BASIC) Ramon Moultonlenkadelfino [id number] Yessica Bond 05/14/2022 1 [place]) 106 Ramon Bond [id number] Yessicaviktoriya Bond 05/14/2022 1 [employer]UE [place] - FEP 106 Ramon Bond [id number] Yessicaviktoriya Bond 05/14/2022 2 [place] [employer] Ramon Bond [id number] Yessicaviktoriya Bond 05/14/2022 1 [place] [facility] Ramon Bond [id number] Yessicaviktoriya Bond 05/13/2022 1 [employer]UE CROSS - FEP Ramon Moultonkelly [id number] Yessica Bond Notes Date Note Type Note Provider Name and Address Organization Details Recorded Time 05/13/2022 text/html 10/13/21 had 4 vessel bypass at [facility]. His die sinking machine operator is Yuri LOMBARDO / and his LOG MANAGER. Seen by LOG MANAGER 3 days ago due to SOB, had chest xray and blood test. No pneumonia but bilateral pleural effusion, not significantly changed from his previous x-ray. he had his lasix increased to 40 mg BID, But has not noticed an increase in his urine output. he has been having dyspnea that seems to be getting worse, with climbing stairs, although he states he recovered fast when he rested. He checks his weight daily and has stayes around 182-183 has not gone up or down with the increase in furosemide. Denies chest pain at this time and has no chest pain when he has his POON. He is scheduled for cardiac echo a week from tomorrow. He has no peripheral edema. He sleeps well on one pillow. He has had to have the pleural effusion drained x 2 . He has had both right and left side drained.Calls today for exertional dyspnea, no pain with respiration but he is aware he cannot take in deep breath especially on the right. He has good appetite, and is taking in fluids. SOPHIA Mora [address], [place], [id number], [place] [facility] 05/13/2022 18:17:39
--- OUTSIDE RECORDS SUMMARY | 2025-04-20 12:42 | XMS_ITS | Data Portability ---
Author Organization [facility] [employer] [facility], [facility] Address [address] [place] [address] Care Team Providers Care Ross Carrier Driver Name Role Phone MONICA HOWARD Referring Provider MONICA HOWARD Primary Care Provider Assessment Encounter Date Assessment Date Assessment LastModified by Organization Details LastModified Time 07/21/2024 07/21/2024 Assessment: Pt with cont mild residual edema R lower LE, overall good L knee ROM, improving L LE strength. Plan: Cont to progress per POC as tolerated. Not available 07/23/2024 09:44:40 07/24/2024 07/24/2024 Assessment: Pt demonstrating steady improvements with R quad strength. Plan: Cont to progress per POC as tolerated. Not available 07/26/2024 19:25:07 07/28/2024 07/28/2024 Assessment: Pt with cont good R knee ROM, good robin to strength therex. Plan: Plan 1-2 more visits -->> d/c to Ind [facility]. Not available 07/30/2024 14:58:57 07/31/2024 07/31/2024 Assessment: Pt cont with slight end range flexion improvement. Fatigued by end of session; unable to complete 3rd set of SL leg press. Plan: Plan 1 more visit -->> d/c to Ind [facility]P. [email or web address] Not available 07/31/2024 15:11:16 08/04/2024 08/04/2024 Assessment: Pt with good ROM, strength, and gait mechanics. Plan: D/c to [facility] to cont on own towards remaining goals. Not available 08/04/2024 14:30:13 Plan of Treatment Reminders Order Date Submit Date Provider Last Modified By Organization Details Last Modified Time Details Appointments None record ed. Lab None record ed. Referral None record ed. Procedures None record ed. Surgeries None record ed. Imaging None record ed. Medication Orders None record ed. Patient TargetsNo targets recorded. Patient InstructionsNo instructions recorded. Reason for Referral None Reported. Problems Name Problem SNOMED Code Status Onset Date Resolution Date Notes Provider Name and Address Organization Details Recorded Time No complaints 769140990 Active Status : 'A'; Not Available [facility] 4 09:20:48 Problem Notes None recorded. Procedures Surgical History Date Name Laterality Status Provider Name and Address Organization Details Recorded Time 5 56589 Therapeutic Exercise (1:1) completed Pancho Joi, PT [address], [place], [address], [facility] 08/04/2024 10:58:07 5 31179: Manual therapy completed Pancho Joi, PT [address], [place], [address], [facility] 08/04/2024 10:58:07 5 83701 Therapeutic Exercise (1:1) completed Breann Jonel, [employer] [address], [place], [address], [facility] 07/31/2024 13:57:21 5 59159: Manual therapy completed Breann Jonel, BUTTON [employer]ER [address], [place], [address], [facility] 07/31/2024 13:57:21 5 06942 Therapeutic Exercise (1:1) completed Pancho Joi, PT [address], [place], [address], [facility] 07/30/2024 14:55:50 5 05060: Manual therapy completed Pancho Peterso, PT [address], [place], [address], [facility] 07/30/2024 14:55:50 5 73100 Therapeutic Exercise (1:1) completed Pancho Joi, PT [address], [place], [address], [facility] 07/26/2024 19:16:36 5 58408: Manual therapy completed Pancho Joi, PT [address], [place], [address], [facility] 07/26/2024 19:16:36 5 59169 Therapeutic Exercise (1:1) completed Pancho Joi, PT [address], [place], [address], [facility] 07/21/2024 11:25:06 5 54531: Gait training completed Pancho Joi, PT [address], [place], [address], [facility] 07/21/2024 11:25:06 5 04767: Manual therapy completed Pancho Joi, PT [address], [place], [address], [facility] 07/21/2024 11:25:06 5 87955 Therapeutic Exercise (1:1) completed Breann Jonel, BUTTON [employer]ADER [address], [place], [address], [facility] 07/17/2024 11:06:03 5 19327: Gait training completed Breann Jonel, BUTTON [employer]ADER [address], [place], [address], [facility] 07/17/2024 11:06:03 5 81368: Manual therapy completed Breann Jonel, BUTTON GRADER [address], [place], [address], [facility] 07/17/2024 11:06:03 5 09674 Therapeutic Exercise (1:1) completed Breann Jonel, BUTTON GRADER [address], [place], [address], [place] [facility] 07/15/2024 11:24:41 5 94631: Gait training completed Breann Jonel, BUTTON GRADER [address], [place], [address], [place] [facility] 07/15/2024 11:24:41 5 62388: Manual therapy completed Breann Jonel, BUTTON GRADER [address], [place], [address], [facility] 07/15/2024 11:24:41 5 26176 Therapeutic Exercise (1:1) completed Breann Jonel, BUTTON GRADER [address], [place], [address], [facility] 07/10/2024 11:10:57 5 45247: Gait training completed Breann Jonel, BUTTON GRADER [address], [place], [address], [facility] 07/10/2024 11:10:57 5 40842: Manual therapy completed Breann Jonel, BUTTON GRADER [address], [place], [address], [facility] 07/10/2024 11:10:57 5 85254 Therapeutic Exercise (1:1) completed Breann Jonel, BUTTON GRADER [address], [place], [address], [facility] 07/08/2024 11:03:57 5 70899: Gait training completed Breann Jonel, BUTTON GRADER [address], [place], [address], [facility] 07/08/2024 11:03:57 5 29873: Manual therapy completed Breann Jonel, BUTTON GRADER [address], [place], [address], [facility] 07/08/2024 11:03:57 5 17829 Therapeutic Exercise (1:1) completed Breann Jonel, BUTTON GRADER [address], [place], [address], [facility] 07/03/2024 11:07:55 5 18345: Gait training completed Breann Jonel, BUTTON GRADER [address], [place], [address], [facility] 07/03/2024 11:07:55 5 94500: Manual therapy completed Breann Jonel, BUTTON GRADER [address], [place], [address], [facility] 07/03/2024 11:07:55 5 23033 Therapeutic Exercise (1:1) completed Breann Jonel, BUTTON GRADER [address], [place], [address], [facility] 07/01/2024 11:21:42 5 44853: Gait training completed Breann Jonel, BUTTON GRADER [address], [place], [address], [facility] 07/01/2024 11:21:42 5 88856: Manual therapy completed Breann Jonel, BUTTON GRADER [address], [place], [address], [facility] 07/01/2024 11:21:42 5 73167 Therapeutic Exercise (1:1) completed Breann Jonel, BUTTON GRADER [address], [place], [address], [facility] 06/26/2024 11:11:51 5 91563: Gait training completed Breann Jonel, BUTTON GRADER [address], [place], [address], [facility] 06/26/2024 11:11:51 5 49672: Manual therapy completed Breann Jonel, BUTTON GRADER [address], [place], [address], [facility] 06/26/2024 11:11:51 4 99847 Therapeutic Exercise (1:1) completed Pancho Joi, PT [address], [place], [address], [facility] 06/23/2024 08:04:37 4 34986: Gait training completed Pancho Joi, PT [address], [place], [address], [facility] 06/23/2024 08:04:38 4 01466: Manual therapy completed Pancho Joi, PT [address], [place], [address], [facility] 06/23/2024 08:04:38 4 81826 Therapeutic Exercise (1:1) completed Pancho Joi, PT [address], [place], [address], [facility] 06/19/2024 11:30:30 4 68016: Gait training completed Pancho Joi, PT [address], [place], [address], [facility] 06/19/2024 11:30:30 4 43147: Manual therapy completed Pancho Joi, PT [address], [place], [address], [facility] 06/19/2024 11:30:30 4 62608 Therapeutic Exercise (1:1) completed Pancho Joi, PT [address], [place], [address], [facility] 06/18/2024 12:01:02 4 80031: Gait training completed Pancho Joi, PT [address], [place], [address], [facility] 06/18/2024 12:31:25 4 37762: Manual therapy completed Pancho Joi, PT [address], [place], [address], [facility] 06/18/2024 12:01:02 4 04263 Therapeutic Exercise (1:1) completed Breann Jonel, BUTTON GRADER [address], [place], [address], [facility] 06/12/2024 11:08:52 4 10021: Manual therapy completed Breann Jonel, BUTTON GRADER [address], [place], [address], [facility] 06/12/2024 11:08:52 4 81119 Therapeutic Exercise (1:1) completed Pancho Joi, PT [address], [place], [address], [facility] 06/11/2024 09:05:19 4 55751: Manual therapy completed Pancho Joi, PT [address], [place], [address], [facility] 06/11/2024 09:04:09 4 50244 Therapeutic Exercise (1:1) completed Pancho Joi, PT [address], [place], [address], [facility] 06/05/2024 11:47:20 4 74781: Low complexity PT Eval completed Pancho Joi, PT [address], [place], [address], [facility] 06/05/2024 11:47:33 4 01367 Therapeutic Exercise (1:1) completed Pancho Joi, PT [address], [place], [address], [facility] 05/03/2024 08:38:24 4 64762: Low complexity PT Eval completed Pancho Peterso, PT [address], [place], [address], [facility] 05/03/2024 08:38:32 4 G8417 BMI Above Upper Parameters, F/U Documented completed Pancho Peterso, PT [address], [place], [address], [facility] 05/03/2024 08:40:36 4 G8427 Current Medication Documented completed Pancho Peterso, PT [address], [place], [address], [facility] 05/03/2024 08:40:30 Imaging Results None recorded. Procedure Notes None recorded. Medical Equipment None Reported. Allergies No known drug allergies Medications Name Sig Start Date Stop Date Status Note LastModified by Organization Details LastModified Time cyclobenzap rine 10 mg tablet Take 1 tablet every 8 hours by oral route. active Not Available Not Available No t Available amoxicillin 500 mg capsule TAKE 4 CAPSULES BY MOUTH 1 HOUR BEFORE PROCEDURE active Not Available Not Available No t Available furosemide 40 mg tablet TAKE 1 TABLET BY MOUTH TWICE DAILY active Not Available Not Available No t Available atorvastati n 40 mg tablet TAKE 1 TABLET BY MOUTH DAILY active Not Available Not Available No t Available meloxicam 15 mg tablet TAKE 1 TABLET BY MOUTH DAILY AFTER A MEAL active Not Available Not Available No t Available potassium chloride ER 10 mEq tablet,exte nded release TAKE 2 TABLETS BY MOUTH DAILY. DO NOT CRUSH OR CHEW active Not Available Not Available No t Available doxycycline monohydrate 100 mg tablet 03/17 completed Not Available Not Available Not Available tramadol 50 mg tablet Take 1-2 tablets every 6 hours as needed for pain. active Not Available Not Available No t Available aspirin 325 mg tablet,lopez yed release TAKE 1 TABLET BY MOUTH TWO TIMES A DAY active Not Available Not Available No t Available pantoprazol e 40 mg tablet,lopez yed release TAKE 1 TABLET BY MOUTH EVERY DAY active Not Available Not Available No t Available prednisone 50 mg tablet TAKE 1 TABLET BY MOUTH DAILY FOR 5 DAYS 03/17 completed Not Available Not Available Not Available indomethaci n 50 mg capsule TAKE 1 CAPSULE BY MOUTH TWICE DAILY FOR 5 DAYS 03/17 completed Not Available Not Available Not Available colchicine 0.6 mg tablet TAKE 1 TABLET BY MOUTH TWICE DAILY FOR 7 DAYS 03/17 completed Not Available Not Available Not Available doxycycline hyclate 100 mg tablet TAKE 1 TABLET BY MOUTH TWICE DAILY FOR 7 DAYS 03/17 completed Not Available Not Available Not Available oxycodone 5 mg tablet INHALE 1 TO 2 TABLETS BY MOUTH EVERY 4 HOURS NEEDED FOR MODERATE TO SEVERE PAIN active Not Available Not Available No t Available Vitamin C active Not Available Not Shaunna ilable Not Available iron active Not Available Not Availa ble Not Available Vitamin D active Not Available Not Shaunna ilable Not Available fluocinolon e acetonide oil 0.01 % ear drops active Not Available Not Available No t Available cholecalcif lorin (vitamin D3) 1,250 mcg (50,000 unit) capsule TAKE 1 CAPSULE BY MOUTH EVERY WEEK active Not Available Not Available No t Available Gel-One as directed INJECT ONE PRE FILLED SYRINGE INTRA ARTICULAL RY INTO RIGHT KNEE ONCE TO BE ADMINISTE RED AT DRS OFFICE 03/17 completed Statu s: 'Curr ent'; Not Available Not Available Not Available Vitals None Recorded Social History None recorded. Functional Status None recorded. Mental Status None recorded. Family History Nothing Reported. Medical History No medical history recorded. Past Encounters Encounter ID Performer Location Encounter Start Date Encounter Closed Date Diagnosis/Indication Diagnosis SNOMED-CT Code Diagnosis ICD10 Code Diagnosis IMO Codes Diagnosis Note [id number] MD Inderjit Turner [address] [place] [address] 03/17/2024 16:19:59 04/07/2024 12:01:15 Pain of right knee joint 7926103732 16825 M25.561 Osteoarthr itis of right knee joint 6028868499 13567 M17.11 [id number] Pancho Tamez, PT [facility] [address] [place] [address] 04/29/2024 10:49:18 04/29/2024 11:51:38 Osteoarthritis of knee 026092252 M17.11 [id number] Adalid Paula, OPAL [facility] [address] [place] [address] 05/14/2024 12:56:48 06/12/2024 04:04:43 [id number] Pancho Peterso, PT [facility] [address] [place] [address] 06/05/2024 10:57:06 06/05/2024 13:03:21 History of right total knee replacement 0439602076 444253 Z96.651 Z47.1 [id number] Amber Rahman PA-C [facility] [address] [place] [address] 06/08/2024 13:31:18 07/01/2024 10:54:35 Postoperative visit 909365741 Z48.89 [id number] Knee joint prosthesis present 1895830915 02 Z96.435 3877325 [id number] Pancho Joi, PT [facility] [address] [place] [address] 06/09/2024 11:27:20 06/09/2024 12:31:05 History of right total knee replacement 7077168337 616500 Z96.651 Z47.1 [id number] Breann Jonel, [employer]TON GRADER [facility] [address] [place] [address] 06/12/2024 10:54:35 06/12/2024 11:49:20 History of right total knee replacement 4669288444 296128 Z96.651 Z47.1 [id number] Pancho Joi, PT [facility] [address] [place] [address] 06/16/2024 09:56:24 06/16/2024 10:58:35 History of right total knee replacement 3430034975 502960 Z96.651 Z47.1 [id number] Pancho Joi, PT [facility] [address] [place] [address] 06/19/2024 10:55:09 06/19/2024 11:44:47 History of right total knee replacement 8374392983 303727 Z96.651 Z47.1 [id number] Pancho Joi, PT [facility] [address] [place] [address] 06/23/2024 10:50:07 06/23/2024 13:55:51 History of right total knee replacement 8474041991 662948 Z96.651 Z47.1 [id number] Breann Jonel, BUTTON GRADER [facility] [address] [place] [address] 06/26/2024 10:54:47 06/26/2024 11:43:19 History of right total knee replacement 2560619071 300104 Z96.651 Z47.1 [id number] Breann Jonel, BUTTON GRADER [facility] [address] [place] [address] 07/01/2024 10:54:57 07/01/2024 11:45:12 History of right total knee replacement 0034640284 022541 Z96.651 Z47.1 [id number] MD [facility] Floor [address] [place] [address] 07/01/2024 15:28:05 07/13/2024 14:57:28 History of total knee arthroplasty 9788378796 105 Z96.651 06409231 [id number] Breann Jonel, BUT[employer] GRADER [facility] [facility] [address] [place] [address] 07/03/2024 10:56:45 07/03/2024 14:44:09 History of right total knee replacement 6465406824 601005 Z96.651 Z47.1 [id number] Breann Jonel, BUT[employer] GRADER [facility] [facility] [address] [place] [address] 07/08/2024 10:55:47 07/08/2024 11:41:06 History of right total knee replacement 8422255433 309664 Z96.651 Z47.1 [id number] Breann Jonel, [employer] GRADER [facility] [address] [place] [address] 07/10/2024 10:51:37 07/10/2024 13:25:01 History of right total knee replacement 9678992615 325188 Z96.651 Z47.1 [id number] Breann Jonel, BUTTON GRADER [facility] [address] [place] [address] 07/15/2024 10:56:17 07/15/2024 12:07:42 History of right total knee replacement 1104395250 895420 Z96.651 Z47.1 [id number] Breann Jonel, BUTTON GRADER [facility] [address] [place] [address] 07/17/2024 10:57:32 07/17/2024 12:55:31 History of right total knee replacement 6476713473 913690 Z96.651 Z47.1 [id number] Pancho Joi, PT [facility] [address] [place] [address] 07/21/2024 10:57:12 07/21/2024 11:45:38 History of right total knee replacement 8461297579 479500 Z96.651 Z47.1 [id number] Pancho Joi, PT [facility] [address] [place] [address] 07/24/2024 10:55:29 07/24/2024 12:04:45 History of right total knee replacement 8792419763 117995 Z96.651 Z47.1 [id number] Pancho Joi, PT [facility] [address] [place] [address] 07/28/2024 11:27:58 07/28/2024 12:52:04 History of right total knee replacement 3985875921 827073 Z96.651 Z47.1 [id number] Breann Jonel, BUTTON GRADER [facility] [address] [place] [address] 07/31/2024 13:55:59 07/31/2024 15:04:53 History of right total knee replacement 5086768497 919103 Z96.651 Z47.1 [id number] Pancho Joi, PT [facility] [address] [place] [address] 08/04/2024 10:28:35 08/04/2024 11:22:16 History of right total knee replacement 8570514144 786348 Z96.651 Z47.1 Health Concerns Section Related Observation LastModified by Organization Detai ls LastModified Time None Recorded Concern Status LastModified by Organization Details LastModified Time None Recorded Advance Directives Directive None Recorded Payers Insurance Date Sequence Insurance Name Policy Number Policy Jimenez Covered Member ID Jimenez Member ID Guarantor Name 06/26/2024 1 [place] 33F Ramon Bond [id number] Ramon Bond 05/14/2024 2 [place] [facility] Ramon Bond [id number] Ramon Bond 06/05/2024 2 [place] [facility] Ramon Bond [id number] Ramon Bond 08/05/2024 1 [place] 33[place] Ramon Bond [id number] Ramon Bond 07/03/2024 1 [place] 33F Ramon Bond [id number] Ramon Bond 07/31/2024 2 [place] 33F Ramon Bond [id number] Ramon Bond 07/31/2024 1 [place] Ramon Bond [id number] Ramon Bond 07/02/2024 1 [place] [facility] Ramon Bond [id number] Ramon Bond 05/09/2024 1 [place] 106 Ramon Bond [id number] Ramon Bond Notes Date Note Type Note Provider Name and Address Organization Details Recorded Time 07/21/2024 text/html Pt reports R knee feeling ok today, stiff and sore this morning mostly. Pancho Tamez, PT [address], [place], [address], [facility] 07/23/2024 09:45:00 07/24/2024 text/html Pt reports R knee is feeling good, was able to perform ascending/descend ing reciprocal stairs yesterday, Pancho Oji, PT [address], [place], [address], [facility] 07/26/2024 19:26:04 07/28/2024 text/html Pt reports R knee is doing ok, feeling a little stronger Pancho Tamez, PT [address], [place], [address], [facility] 07/30/2024 14:59:14 07/31/2024 text/html Pt reports the knee is doing okay, not really having any problems aside from stiffness. I had to do my driveway this morning Breann Remy, BUTTON GRADER [address], [place], [address], [facility] 07/31/2024 15:12:00 08/04/2024 text/html Pt reports doing ok, some stiffness but no real px as of late. Pancho Tamez, PT [address], [place], [address], [facility] 08/04/2024 14:30:25
== END 2025-04-20 10:21 | disposition home or self-care (01) ==
LOC: HO.NEURO 10:20
PROVIDERS: PCP Internal Medicine; Visit Provider Internal Medicine
DX: R20.0 Anesthesia of skin (principal); R20.2 Paresthesia of skin
CPT/HCPCS: 95886; 95911

== ENCOUNTER → 2025-04-20 10:23 | Outpatient (BNV) | payer MEDICARE, BC, SELFPAY | PROVIDERS: PCP Internal Medicine; Visit Provider Psychiatry & Neurology Neurology | DX: G56.03 Carpal tunnel syndrome, bilateral upper limbs (principal) | CPT/HCPCS: 95886; 95911 ==

== ENCOUNTER 2025-06-07 10:02 | Outpatient (REF) | payer MEDICARE, BC, SELFPAY ==
--- NOTE | ~2025-06-07 | US_ITS ---
EXAMINATION: US RETROPERITONEAL COMPLETE (RENAL) CLINICAL INFORMATION: Benign prostate hyperplasia. Lower urinary tract symptoms.. COMPARISON: None available. TECHNIQUE: Real-time imaging of the kidneys and bladder. FINDINGS: RIGHT KIDNEY: 12 x 5 x 6 cm (SAG x AP x TRV). Normal echotexture. Renal cortical thickness is normal. No hydronephrosis. No solid or cystic mass. LEFT KIDNEY: 11 x 6 x 5 cm (SAG x AP x TRV). Normal echotexture. Renal cortical thickness is normal. No hydronephrosis. No solid or cystic lesion. BLADDER: Fluid-filled without gross intraluminal abnormality. Bilateral ureteral jets are demonstrated. Prevoid bladder volume is 456 mL. Postvoid bladder volume is 178 mL. Prostate gland measures 5 x 4.4 x 5.2 cm and volume: 61 cc. US/US retroperitoneal comp IMPRESSION: Prostate gland volume: 61 cc. 178 cc retained urine in a post void image. No hydronephrosis or gross nephrolithiasis in either kidney.. Electronically signed by: Uli Curry MD 06/07/2025 11:34 AM MARVEL CARMEN
== END 2025-06-07 10:03 | disposition home or self-care (01) ==
LOC: HO.US 10:02
PROVIDERS: PCP Internal Medicine; Visit Provider Urology
DX: N40.0 Benign prostatic hyperplasia without lower urinary tract symptoms (principal); R97.20 Elevated prostate specific antigen [PSA]
CPT/HCPCS: 76770

== ENCOUNTER → 2025-06-07 10:03 | Outpatient (BNV) | payer MEDICARE, BC, SELFPAY | PROVIDERS: PCP Internal Medicine; Visit Provider Radiology Diagnostic Radiology | DX: N40.1 Benign prostatic hyperplasia with lower urinary tract symptoms (principal); R33.9 Retention of urine, unspecified | CPT/HCPCS: 76770 ==